=== PATIENT | female | born 1970 | race Caucasian/White ===

== ENCOUNTER 2019-12-24 07:44 | Outpatient (CLI) | payer OTHER, SELFPAY ==
--- NOTE | ~2019-12-24 | CT_ITS ---
EXAMINATION: CT chest high resolution wo nv DATE: 12/24/2019 09:37 INDICATION: Shortness of breath and cough TECHNIQUE: Computed tomography (CT) of the chest was performed without intravenous contrast. The dose -length product (DLP) was 451.13 mGy-cm. Automated exposure control and iterative reconstruction tech nique were employed. COMPARISON: None FINDINGS: There is mild emphysema. An 11 mm nodule is present in the left upper lobe on image 47. The re are subtle patchy groundglass opacities in the lungs with a lower lung zone predominance. No pleur al effusion or pneumothorax is identified. And aorticopulmonary window lymph node measures up to 12 m m in short axis. The heart size is normal. The gallbladder is surgically absent. There are fractures of the bilateral seventh ribs and left sixth rib with nonunion. A healing fracture of the left eighth rib is noted. IMPRESSION: 1. 11 mm nodule of the left upper lobe concerning for primary bronchogenic carcinoma. Recommend PET/C T, tissue sampling, or follow-up CT in three months. 2. Subtle patchy groundglass opacities which may be infectious or inflammatory. Reviewed, dictated and finalized at location A. IMPRESSION: 1. 11 mm nodule of the left upper lobe concerning for primary bronchogenic carc inoma. Recommend PET/CT, tissue sampling, or follow-up CT in three months. 2. Subtle patchy groundglass opacities which may be infectious or inflammatory.
--- NOTE | 2019-12-24 07:53 | ECHO_ITS ---
Patient Info Name: Jennifer Mott Age: 49 years : 1970 Gender: Female Ht: 62 in Wt: 249 lbs BSA: 2.29 m2 HR: 83 bpm BP: 105 / 84 mmHg Technical Quality: Fair Exam Date: 12/24/2019 8:02 AM Exam Location: [facility] Patient Status: Outpatient Admit Date: 12/24/2019 Staff Ordering Physician: Cinthya Olivares MD Ground Hand: Corinna Soto RDCS Attending Provider: Cinthya Olivares MD Referring Physician: Elise DICKINSON; Exam Type: CA echo doppler color flow Study Info Indications R06.02 - Shortness of breath Complete two-dimensional, color flow and Doppler transthoracic echocardiogram is performed. Summary 1. Left ventricular chamber dimension is normal. 2. Left ventricular systolic function is normal, estimated at 60-65%. 3. There is mildly increased left ventricular wall thickness. 4. The left ventricular diastolic function is grade I diastolic dysfunction. 5. E/e' 12 is mildly elevated. 6. There is trace mitral valve regurgitation. 7. No pulmonary hypertension, estimated pulmonary arterial systolic pressure is 33 mmHg. Left Ventricle E/e' 12 is mildly elevated. Left ventricular chamber dimension is normal. Left ventricular systolic function is normal, estimated at 60-65%. There is mildly increased left ventricular wall thickness. The left ventricular diastolic function is grade I diastolic dysfunction. Right Ventricle Right ventricular chamber dimension is normal. Right ventricular systolic function is normal. Left Atria Left atrial chamber dimension is normal. Right Atria Right atrial chamber dimension is normal. Aortic Valve Cannot determine number of aortic valve leaflets. The aortic valve is not well visualized. There is no aortic valve stenosis. There is no aortic valve regurgitation. Pulmonic Valve There is no pulmonic regurgitation. Mitral Valve There is no mitral valve stenosis. There is trace mitral valve regurgitation. Tricuspid Valve There is no tricuspid valve regurgitation. No pulmonary hypertension, estimated pulmonary arterial systolic pressure is 33 mmHg. Pericardium/Pleural There is no pericardial effusion. Inferior Vena Cava Normal inferior vena cava with >50% collapse upon inspiration consistent with normal right atrial pressure, 5 mmHg. Aorta The aortic root size at the sinus of Valsalva is normal. Left Ventricular Outflow Tract Name Value Normal LVOT 2D LVOT Diameter 1.9 cm LVOT Doppler LVOT Peak Gradient 5 mmHg LVOT Mean Gradient 3 mmHg LVOT VTI 22 cm LVOT VTI/AV VTI Ratio 0.9 LVOT Stroke Volume 62 ml LVOT CO 4.4 l/min LVOT CI 1.9 l/min/m2 Pulmonic Valve Name Value Normal RVOT Doppler
--- NOTE | 2019-12-31 12:14 | P.PCNPFT_ITS ---
PFT Interpretation PFT Interpretation: DOS: 12/24/2019 REEQUESTING: Dr Olivares REASON FOR TESTING: shortness of breath PULMONARY FUNCTION TESTS Results are reproducible and reliable Spirometry: Normal FEV1 96%, normal FVC 97%, normal FEV1%. No change with bronchodilator. BVP60-61% is borderline 67%, increases 12% with bro nchodilator. Lung volumes: Normal total lung capacity 96%. no air trapping. normal airway resistance. Diffusion: DLCO moderately decreased 51%. Flow volume loop: Normal. IMPRESSION: Normal spirometry lung volumes and flow volume loop. Isolated diffusion defect. This can be seen in early interstitial lung disease, chronic thromboembolic disease, collagen vascular disease with lung involvement and other conditions. Cinthya Olivares MD
--- NOTE | 2019-12-31 12:18 | WPDSIXMINUTE ---
Six Minute Walk Six Minute Walk: DOS: 12/24/2019 REASON FOR TESTING: Shortness of breath SIX MINUTE WALK This test was conducted per ATS guidelines. Baseline saturation was 97% and pulse was 80. The patient walked for 6 minutes without stopping with a final pulse of 107 and saturation 94%. Distance walked was 1000 ft/ 304.8 m. Patient had mild shortness of breath. IMPRESSION: This is a normal walk study without hypoxemia. No supplemental oxygen indicated with exertion. Distance walked is on the lower limit of normal for her age.
== END 2019-12-24 07:45 | disposition home or self-care (01) ==
PROVIDERS: PCP Family Medicine; Visit Provider Internal Medicine Critical Care Medicine
DX: R06.02 Shortness of breath (principal); R91.1 Solitary pulmonary nodule; R91.8 Other nonspecific abnormal finding of lung field
CPT/HCPCS: 71250; 93306; 94060; 94618; 94726; 94729

== ENCOUNTER 2019-12-31 15:20 | Emergency (ER) | payer OTHER, SELFPAY ==
[2019-12-31 15:45] VITALS: BP 108/70; PULSE 80; RESP 24; TEMP 36.3; O2SAT 96
--- NOTE | 2019-12-31 16:15 | ED.URI ---
HPI - URI/Sore Throat General Chief Complaint: Upper Respiratory Infection Stated Complaint: Cough Time Seen by Provider: 12/31/19 16:15 Source: patient and RN notes reviewed Mode of arrival: ambulatory Limitations: no limitations History of Present Illness HPI Narrative: 49 year old female who presents to [facility] care with increased cough for the past 4 days with dyspnea voiced. Patient denies any fevers, chills or sweats. Patient recently saw her seismic computer and had some testing done one week ago and has follow up with seismic computer in near future. Patient states long history of tobacco abuse ranging from 1/2 up to 2 ppd for over 30 years. Patient states that she has been using her inhalers and rescue inhaler and has been taking Mucinex with no improvement in her cough, states that cough is keeping her awake at night and she has coughed so hard her ribs hurt. Patient states that she has had fractured ribs in past from coughing. MD elicited complaint: cough and other (sob) Pertinent past history: pneumonia, COPD, asthma and other (tobacco abuse) Onset (ago): day(s) (4) Consistency: progressively worsening Severity: moderate Pain scale (0-10): 5 Description of mucous: clear Able to tolerate fluids by mouth: Yes Exacerbating factors: exertion and deep breaths Relieving factors: nothing Associated symptoms: cough and shortness of breath Treatments prior to arrival: other (inhalers and Mucinex) Related Data Home Medications Medication Instructions Recorded Confirmed atorvastatin 10 mg tablet 10 mg PO DAILY 09/30/19 12/31/19 buspirone 10 mg tablet 10 mg PO TID 09/30/19 12/31/19 metformin 500 mg tablet 500 mg PO DAILY 09/30/19 12/31/19 sertraline 50 mg tablet 50 mg PO DAILY 09/30/19 12/31/19 trazodone 100 mg tablet 100 mg PO DAILY tablet 09/30/19 12/31/19 aripiprazole 10 mg tablet 10 mg PO DAILY 11/23/19 12/31/19 cetirizine 10 mg capsule 10 mg PO DAILY 11/23/19 12/31/19 divalproex 250 mg PO DAILY 12/31/19 12/31/19 ergocalciferol (vitamin D2) 1,250 mcg PO WEEKLY 12/31/19 12/31/19 [Vitamin D2] Allergies Allergy/AdvReac Type Severity Reaction Status Date / Time No Known Allergies Allergy Verified 12/02/19 13:31 Review of Systems Review of Systems: Narrative: CONSTITUTIONAL: Denies fever, chills, or sweats. EYES: Denies visual changes, redness, or discharge. ENT: Denies any nasal drainage or congestion no sore throat or ear pain CARDIAC: Denies any chest pain, palpitations or edema,anterior rib pain with coughing RESPIRATORY: states increase cough and dyspnea with exertion GASTROINTESTINAL: Denies abdominal pain, nausea, vomiting, or diarrhea. GENITOURINARY: Denies dysuria or hematuria. SKIN: Denies rash or itching. MUSCULOSKELETAL: positive for chronic back pain, joint pain, or myalgia. NEUROLOGIC: Denies headache, numbness, or weakness. PSYCHIATRIC:positive for anxiety or depression. All systems reviewed & are unremarkable except as noted in HPI and below PMFSH Past Medical History Medical History (Updated 01/01/20 @ 22:52 by Sultana Garcia NP) Anxiety and depression Asthma Colitis COPD (chronic obstructive pulmonary disease) Fracture, ribs GI bleeding Pneumonia Rectal polyp Sleep apnea Surgical History Surgical History (Updated 01/01/20 @ 22:44 by Sultana Garcia NP) History of appendectomy History of cholecystectomy History of tubal ligation Social History Social History (Updated 01/01/20 @ 22:46 by Sultana Garcia NP) Smoking packs per day: 1 Smoking cigarettes per day: 20.0 Years smoked: 35 Smoking pack-years: 35.00 Smoking status: Current every day smoker Tobacco type: cigarettes Second hand tobacco smoke exposure: Yes Living arrangements: with family Gender identity (if verbalized by the patient): Female Comments At time of signature, agree with nursing past medical, surgical and social history. There is no relevant family history pertinent to the presenting com
== END 2019-12-31 16:20 | disposition home or self-care (01) ==
LOC: EXPBETH 15:29
PROVIDERS: Emergency Provider Registered Nurse; PCP Family Medicine
DX: J44.1 Chronic obstructive pulmonary disease with (acute) exacerbation (principal); J06.9 Acute upper respiratory infection, unspecified; F17.210 Nicotine dependence, cigarettes, uncomplicated; F41.9 Anxiety disorder, unspecified; F32.9 Major depressive disorder, single episode, unspecified; G47.30 Sleep apnea, unspecified
CPT/HCPCS: 99213; G0463

== ENCOUNTER 2020-01-18 09:42 | Outpatient (CLI) | payer OTHER, SELFPAY ==
--- NOTE | ~2020-01-18 | PE_ITS ---
EXAMINATION: PET skull to mid thigh DATE: 01/18/2020 12:28 INDICATION: Solitary pulmonary nodule TECHNIQUE: Blood glucose level was 130 mg/dL. 12.01 mCi of 18-fluorodeoxyglucose (18-FDG) was adminis tered i.v. Low dose computed tomography (CT) images were acquired from the base of the brain to the p roximal thighs for attenuation correction and anatomic localization. Positron emission tomography (PE T) images were acquired in the same distribution beginning 57 minutes after injection. COMPARISON: CT, 12/24/2019 FINDINGS: Head/neck: FDG uptake in the oropharynx and focal cords without suspicious CT correlate is likely phy siologic. There are no pathologically enlarged lymph nodes. Chest: There is a 1.2 x 1.0 cm nodule of the left upper lobe which demonstrates mild FDG uptake with an SUV max of 2.8. Patchy bilateral airspace opacities have developed throughout the lungs with moder ate FDG uptake. No pathologically enlarged thoracic lymph nodes are identified. The heart size is nor mal. There is no pleural effusion or pneumothorax. Abdomen/pelvis/proximal thighs: Physiologic FDG activity is present in the bowel and urinary tract. N o abnormal FDG uptake is identified. The gallbladder is surgically absent. The liver, spleen, pancrea s, and adrenal glands are normal. The left kidney is unremarkable. Nonobstructing stones of the right kidney measure up to 5 mm. No pathologically enlarged abdominal or pelvic lymph nodes are identified . There is no free intraperitoneal gas or evidence of bowel obstruction. Musculoskeletal: There are healing right-sided rib fractures and old bilateral rib fractures with non union. IMPRESSION: 1. Left upper lobe nodule with mild FDG uptake which remains concerning for primary bronchogenic carc inoma. 2. Worsening bilateral multifocal airspace opacities, consistent with multifocal pneumonia. Reviewed, dictated and finalized at location B. IMPRESSION: 1. Left upper lobe nodule with mild FDG uptake which remains concerning for deja alfredo bronchogenic carcinoma. 2. Worsening bilateral multifocal airspace opacities, consistent with multifoca l pneumonia.
[2020-01-18 10:10] LABS: Basophils Absolute Auto 0.1 K/mm3 (0.0-0.1); Basophils Percent Auto 0.8 % (0.2-1.2); Eosinophils Percent Auto 11.3 % (0-4.4); Hematocrit 40.8 % (37.0-47.0); Immature Granulocyte Absolute 0.15 K/mm3 (0.00-0.031); Immature Granulocyte Percent A 1.6 % (0-0.5); Lymphocytes Absolute Auto 3.03 K/mm3 (0.9-3.2); Lymphocytes Percent Auto 32.8 % (18.3-44.2); Mean Corpuscular HGB Conc 34.3 g/dl (32-36); Mean Corpuscular Volume 96.2 fl (80-100); Mean Platelet Volume 9.2 fl (7.4-10.4); Monocytes Absolute Auto 0.8 K/mm3 (0.1-0.6); Monocytes Percent Auto 8.7 % (2.6-8.5); Neutrophils Absolute Auto 4.1 K/mm3 (1.3-6.7); Neutrophils Percent Auto 44.8 % (45.5-73.1); Platelet Count Result 226 k/mm3 (150-375); Red Blood Count 4.24 M/mm3 (4.2-5.4); Red Cell Distribution Width 13.4 % (11.5-14.5); White Blood Count 9.2 K/mm3 (4.5-10.0)
[2020-01-18 10:19] LABS: Hemoglobin A1C 6.5 % (<5.7)
[2020-01-18 10:22] LABS: Alanine Aminotransferase 17 U/L (4-35); Albumin Level 3.9 g/dL (3.5-5.1); Alkaline Phosphatase 138 U/L (38-126); Aspartate Amino Transferase 20 U/L (14-36); Bilirubin,Total 0.2 mg/dL (0.2-1.3); Blood Urea Nitrogen 25 mg/dL (7-17); Carbon Dioxide 32 mmol/L (22-30); Chloride 97 mmol/L (98-107); Cholesterol 140 mg/dL (0-200); Estimated Glomerular Filt Rate 43; Glucose 129 mg/dL (65-105); HDL Direct 42 mg/dL; Potassium 4.3 mmol/L (3.4-5.0); Sodium 131 mmol/L (137-145); Triglycerides 134 mg/dL (<150)
[2020-01-18 10:32] LABS: LDL Cholesterol Direct 77 mg/dL
[2020-01-18 10:34] LABS: Glucose Point of Care 130 (65-105)
== END 2020-01-18 09:43 | disposition home or self-care (01) ==
PROVIDERS: Physician Assistant; PCP Family Medicine; Visit Provider Nurse Practitioner Family
DX: M54.5 Low back pain (principal); G89.29 Other chronic pain; F17.200 Nicotine dependence, unspecified, uncomplicated; G47.33 Obstructive sleep apnea (adult) (pediatric); E78.2 Mixed hyperlipidemia; E11.9 Type 2 diabetes mellitus without complications
CPT/HCPCS: 36415; 78815; 80053; 80061; 83036; 84443; 85025; A9552

== ENCOUNTER 2020-02-14 07:50 | Outpatient (CLI) | payer OTHER, SELFPAY ==
--- NOTE | ~2020-02-14 | XR_ITS ---
EXAMINATION: XR chest 2V DATE: 02/14/2020 08:18 INDICATION: Pneumonia, unspecified organism TECHNIQUE: PA and lateral views of the chest are obtained. COMPARISON: CTs dated 12/24/2019 and 01/18/2020 FINDINGS: The previously described left upper lobe nodule appears to persist but direct comparison to prior CT examinations is difficult. The bilateral airspace opacities described on the more recent CT appear to have improved. There is no pleural effusion or pneumothorax. The cardiomediastinal silhoue tte is normal. Old bilateral rib fractures are noted. IMPRESSION: 1. Improved bilateral airspace opacities, likely resolving pneumonia. 2. Apparent persistent left upper lobe nodule which remains concerning for primary bronchogenic carci noma. Reviewed, dictated and finalized at location A. IMPRESSION: 1. Improved bilateral airspace opacities, likely resolving pneumonia. 2. Apparent persistent left upper lobe nodule which remains concerning for prim dayana bronchogenic carcinoma.
[2020-02-14 08:23] LABS: Blood Urea Nitrogen 16 mg/dL (7-17); Calcium 9.5 mg/dL (8.4-10.2); Carbon Dioxide 27 mmol/L (22-30); Chloride 102 mmol/L (98-107); Estimated Glomerular Filt Rate 58; Glucose 117 mg/dL (65-105); Potassium 4.9 mmol/L (3.4-5.0); Sodium 136 mmol/L (137-145)
== END 2020-02-14 07:51 | disposition home or self-care (01) ==
PROVIDERS: PCP Family Medicine; Visit Provider Physician Assistant
DX: J18.9 Pneumonia, unspecified organism (principal); E87.1 Hypo-osmolality and hyponatremia; R91.8 Other nonspecific abnormal finding of lung field
CPT/HCPCS: 36415; 71046; 80048

== ENCOUNTER 2020-02-17 05:14 | Outpatient (CLI) | payer OTHER, SELFPAY ==
[2020-02-17 16:50] LABS: SARS-CoV-2 RNA PCR Negative
== END 2020-02-17 05:15 | disposition home or self-care (01) ==
LOC: ANHCOVIDDT 05:18
PROVIDERS: PCP Family Medicine; Visit Provider Internal Medicine Critical Care Medicine
DX: Z01.812 Encounter for preprocedural laboratory examination (principal); Z20.828 Contact with and (suspected) exposure to other viral communicable diseases
CPT/HCPCS: 87635; U0003

== ENCOUNTER 2020-02-18 01:14 | Day surgery (SDC) | payer OTHER, SELFPAY ==
[2020-02-16 14:00] VITALS: BMI 43.7
[2020-02-18] VITALS (8 sets, daily range): BP systolic 97–131; BP diastolic 41–75; PULSE 84–105; RESP 17–27; TEMP 36.6–37.1; O2SAT 91–99; BMI 41.5
--- NOTE | ~2020-02-18 | XR_ITS ---
EXAMINATION: XR chest 1V portable DATE: 02/18/2020 13:08 INDICATION: Left upper lobe pulmonary nodule status post bronchoscopy. TECHNIQUE: A single frontal view of the chest was obtained. COMPARISON: Chest 2 views 02/14/2020, chest CT 12/24/2019 FINDINGS: Sensitivity is decreased by obesity. The chest demonstrates clear lungs without pneumonia, pleural effusion, or pneumothorax. The heart size is normal. Surgical clips in the right upper quadra nt are likely from cholecystectomy. IMPRESSION: 1. No acute cardiopulmonary disease. Reviewed, dictated and finalized at location A.
--- NOTE | 2020-02-18 10:30 | WPDANESEPPF ---
Anes - Initial Pre Proc Eval Procedure: Operation Date: 02/18/20 12:00 Proposed Procedures p Flexible Bronchoscopy - Jaqueline Amaya MD Date/Time: 02/18/20 10:30 Surgeon: Jaqueline Amaya MD Pre Op Diagnosis: Lung Nodule Patient Data Age: 50 Gender: F Height: 5 ft 3 in Weight: 111.8 kg Allergies Allergy/AdvReac Type Severity Reaction Status Date / Time No Known Allergies Allergy Verified 12/02/19 13:31 Home Medications Medication Instructions Recorded Confirmed Type atorvastatin 10 mg tablet 10 mg PO DAILY 09/30/19 02/16/20 History buspirone 10 mg tablet 10 mg PO TID 09/30/19 02/16/20 History metformin 500 mg tablet 500 mg PO DAILY 09/30/19 02/16/20 History sertraline 50 mg tablet 100 mg PO DAILY 09/30/19 02/16/20 History trazodone 100 mg tablet 100 mg PO DAILY tablet 09/30/19 02/16/20 History fluticasone 232 mcg-salmeterol 14 1 puff INHALATION BID #1 each 10/11/19 02/16/20 Rx mcg/actuation breath activated powdr aripiprazole 10 mg tablet 10 mg PO DAILY 11/23/19 02/16/20 History cetirizine 10 mg capsule 10 mg PO DAILY 11/23/19 02/16/20 History naproxen 500 mg tablet 500 mg PO BID #60 tablet 12/02/19 02/16/20 Rx umeclidinium 62.5 mcg/actuation 1 inhalation INHALATION DAILY #30 12/02/19 02/16/20 Rx blister powder for inhalation each divalproex 250 mg PO DAILY 12/31/19 02/16/20 History ergocalciferol (vitamin D2) 1,250 mcg PO WEEKLY 12/31/19 02/16/20 History [Vitamin D2] albuterol sulfate 2.5 mg INHALATION TID #180 ml 01/07/20 02/16/20 Rx lisinopril 20 mg tablet 20 mg PO DAILY #30 tablet 01/20/20 02/16/20 Rx benzonatate 200 mg capsule 200 mg PO TID PRN #60 cap 01/21/20 02/16/20 Rx Patient hx anesthesia problems: none Family hx anesthesia problems: none PMFSH Past Medical History Medical History Anxiety and depression Asthma Colitis COPD (chronic obstructive pulmonary disease) Fracture, ribs GI bleeding Pneumonia Rectal polyp Sleep apnea Surgical History Surgical History History of appendectomy History of cholecystectomy History of tubal ligation Social History Social History Smoking packs per day: 1 Smoking cigarettes per day: 20.0 Years smoked: 35 Smoking pack-years: 35.00 Smoking status: Current every day smoker Tobacco type: cigarettes Second hand tobacco smoke exposure: Yes Gender identity (if verbalized by the patient): Female Anes - Eval Final PreProcedure Day of Procedure 02/18/20 10:30 Patient weight: morbidly obese Heart: regular rate and rhythm Lungs: decreased breath sounds Airway: Mallampati scale class II Neurological: other (alert) Last oral intake: >/= 8 hours ASA classification: IV Emergent: no Anesthetic plan: proceed Anesthesia type and monitoring: general LMA and standard monitoring Informed Consent: The patient's anesthetic plan and its attendant risks and benefits were discussed with the patient/family/POA. Questions were solicited and answers provided to the satisfaction of the patient/family/POA.
[2020-02-18] MEDS: LACTATED RINGERS 1,000 ML 150 ML IV CONT (10:53)
[2020-02-18 10:54] LABS: Glucose Point of Care 98 (65-105)
--- NOTE | 2020-02-18 13:05 | SUR.OPER ---
100 ml NS given intrabronchial 15ml out in BAL container
== END 2020-02-18 14:13 | disposition home or self-care (01) ==
PROVIDERS: PCP Family Medicine; Visit Provider Internal Medicine Critical Care Medicine
PROC: 0BJ08ZZ Inspection of Tracheobronchial Tree, Via Natural or Artificial Opening Endoscopic (ICD-10-PCS; CPT 31622; principal; 2020-02-18 12:00)
DX: R91.1 Solitary pulmonary nodule (principal); J44.9 Chronic obstructive pulmonary disease, unspecified; G47.33 Obstructive sleep apnea (adult) (pediatric); F41.8 Other specified anxiety disorders; Z79.84 Long term (current) use of oral hypoglycemic drugs; F17.210 Nicotine dependence, cigarettes, uncomplicated; E66.01 Morbid (severe) obesity due to excess calories; Z68.41 Body mass index [BMI] 40.0-44.9, adult
CPT/HCPCS: 31624; 71045; 88104; 88108; 88160; 88305; J7120

== ENCOUNTER 2020-03-02 13:11 | Inpatient (IN) | payer OTHER, SELFPAY ==
[2020-03-02] VITALS (7 sets, daily range): BP systolic 140–170; BP diastolic 67–101; PULSE 78–100; RESP 16–28; TEMP 36.4–36.9; O2SAT 93–95; BMI 39.7
--- NOTE | ~2020-03-02 | US_ITS ---
EXAMINATION:US venous doppler LE BI INDICATION:Urinary embolism TECHNIQUE: Multiple grayscale, color flow and Doppler images of the lower extremity deep venous syste ms were obtained and reviewed. COMPARISON:No prior studies for comparison. FINDINGS: The common femoral, superficial femoral and popliteal veins demonstrate normal respiratory variation, augmentation and compressibility. Color flow is also seen within the posterior tibial, pe roneal, greater saphenous and profunda veins. IMPRESSION: 1: No lower extremity deep venous thrombosis. Reviewed, dictated and finalized at location A.
--- NOTE | ~2020-03-02 | XR_ITS ---
EXAMINATION: XR chest 2V DATE: 03/02/2020 13:54 INDICATION: Weakness TECHNIQUE: 02/18/2020 COMPARISON: None available FINDINGS: The lungs are free of acute opacities. A previously described left upper lobe nodule is not well demonstrated on the current examination. Small pleural effusions are present. There is no pneum othorax. The cardiomediastinal silhouette is normal. There is mild thoracic spondylosis. Old bilatera l rib fractures are noted. IMPRESSION: 1. No acute cardiopulmonary abnormality. Reviewed, dictated and finalized at location A.
--- NOTE | ~2020-03-02 | CT_ITS ---
EXAMINATION: CTA chest PE protocol DATE: 03/02/2020 15:52 CDT INDICATION: Rule out pulmonary embolism. Dyspnea. TECHNIQUE: Computed tomographic angiography (CTA) of the chest was performed with 100 mL Omnipaque-35 0 intravenous contrast. The dose-length product was 622.78 mGy-cm. Maximum intensity projection 3D-re constructions of the aorta and other arteries were constructed by the technologist on a separate work station. Automated exposure control and iterative reconstruction technique were employed. COMPARISON: CT dated 12/24/2019 FINDINGS: Study is technically adequate. There are small filling defects in lower lobe subsegmental p ulmonary arteries, consistent with pulmonary embolism, small thrombus burden. No significant pleural or pericardial effusion. Cardiomegaly. No thoracic lymphadenopathy. No evidence for aortic aneurysm o r dissection. There is an accessory splenule in the upper abdomen. There are cholecystectomy clips. T here is an 11 mm left upper lobe nodule, image 43. Patchy groundglass opacities in the upper lobes, l eft greater than right. There are multiple chronic bilateral rib fractures. No pneumothorax. No endob ronchial lesions. IMPRESSION: 1. Small filling defects lower lobe subsegmental pulmonary arteries, consistent with pulmonary emboli sm, small thrombus burden. 2: Patchy groundglass opacities in the left upper lobe, suspicious for pneumonia. 3: 11 mm left upper lobe nodule. Cannot exclude bronchogenic carcinoma. Consider follow-up CT at 3 m [facility], pet/CT or tissue sampling. Reviewed, dictated and finalized at location A. IMPRESSION: 1. Small filling defects lower lobe subsegmental pulmonary arteries, consistent with pulmonary embolism, small thrombus burden. 2: Patchy groundglass opacities in the left upper lobe, suspicious for pneumoni a. 3: 11 mm left upper lobe nodule. Cannot exclude bronchogenic carcinoma. Consid er follow-up CT at 3 months, pet/CT or tissue sampling.
--- NOTE | 2020-03-02 13:30 | ED.GENADULT ---
HPI - General Adult General Chief complaint: Unspecified Stated complaint: MULTIPLE C/O Time Seen by Provider: 03/02/20 13:15 Source: patient Mode of arrival: ambulatory Limitations: no limitations History of Present Illness HPI narrative: Patient is a 50-year-old female with a history of newly diagnosed lung cancer, COPD, anxiety, who presents to the emergency department for evaluation of chest pain, nausea, vomiting, black and tarry stools. Patient reports a weeklong history of worsening nausea and vomiting, unable to tolerate much oral intake. She denies any shortness of breath, but states had due to her cancer diagnosis and unable to tolerate her oral anxiety medication, her anxiety has been out of control. She also reports she feels her hemorrhoids are acting up and has had some black, tarry stool over the past 48 hours. Patient is not on any anticoagulation, no history of GI bleed. No lightheadedness, patient states she feels mildly weak, no focal weakness or numbness. No recent syncope. No history of blood transfusions. Related Data Home Medications Medication Instructions Recorded Confirmed atorvastatin 10 mg tablet 10 mg PO DAILY 09/30/19 02/18/20 buspirone 10 mg tablet 10 mg PO TID 09/30/19 02/18/20 metformin 500 mg tablet 500 mg PO DAILY 09/30/19 02/18/20 trazodone 100 mg tablet 100 mg PO DAILY tablet 09/30/19 02/18/20 aripiprazole 10 mg tablet 10 mg PO DAILY 11/23/19 02/16/20 cetirizine 10 mg capsule 10 mg PO DAILY 11/23/19 02/18/20 divalproex 250 mg PO TID 12/31/19 02/18/20 ergocalciferol (vitamin D2) 1,250 mcg PO WEEKLY 12/31/19 02/18/20 [Vitamin D2] sertraline 100 mg PO DAILY 03/02/20 Allergies Allergy/AdvReac Type Severity Reaction Status Date / Time No Known Allergies Allergy Verified 02/18/20 10:54 Review of Systems Review of Systems: Narrative: CONSTITUTIONAL: Denies fever, chills, or sweats. EYES: Denies visual changes, redness, or discharge. ENT: Denies rhinorrhea, congestion, sore throat, or otalgia. CARDIOVASCULAR: Denies chest pain currently, palpitations, or edema. RESPIRATORY: Reports chronic cough, no current shortness of breath GASTROINTESTINAL: Reports mild abdominal discomfort, nausea and vomiting, denies diarrhea, reports dark stool GENITOURINARY: Denies dysuria or hematuria. SKIN: Denies rash or itching. MUSCULOSKELETAL: Denies back pain, joint pain, or myalgia. NEUROLOGIC: Denies headache, numbness, mild weakness PMFSH Past Medical History Medical History (Updated 03/02/20 @ 16:46 by Mandie Naranjo PA-C) Anxiety and depression Asthma Chronic obstructive pulmonary disease Colitis Esophageal reflux Fracture, ribs Chronic rib fractures on imaging in dated 03/02/2020. Lung nodule 11 millimeter left upper lobe nodule with mild FDG uptake on PET scan in December 2019. Bronchoscopy with bronchioalveolar lavage February 18, 2020 demonstrated no malignant cells. Obstructive sleep apnea Pneumonia Rectal polyp Tobacco abuse Type 2 diabetes mellitus without complication, without long-term current use of insulin Hemoglobin A1c was 6.5% in January 2020. Surgical History Surgical History (Updated 03/02/20 @ 16:46 by Mandie Naranjo PA-C) History of appendectomy History of cholecystectomy (~2010) History of tubal ligation (~1992) Family History Family History (Updated 03/02/20 @ 16:47 by Mandie Naranjo PA-C) Mother Hypertension Diabetes mellitus Father Heart disease Cerebrovascular accident Social History Social History (Updated 03/02/20 @ 16:47 by Mandie Naranjo PA-C) Social History: Patient lives in [place]. She has 2 children. She has smoked up to 2 packs of cigarettes per day for 35 years. Smoking packs per day: 1 Smoking cigarettes per day: 20.0 Years smoked: 35 Smoking pack-years: 35.00 Smoking status: Current every day smoker Tobacco type: cigarettes Second hand tobacco smoke exposure: Yes Gender identity (if verbalized by
--- NOTE | 2020-03-02 13:34 | ECG_ITS ---
Measurements Intervals [place] Rate: 94 P: 42 KS: 162 QRS: 50 QRSD: 85 T: 42 QT: 341 QTc: 427 Interpretive Statements SINUS RHYTHM LOW QRS VOLTAGE IN PRECORDIAL LEADS DELAYED PRECORDIAL R/S TRANSITION BORDERLINE ECG Electronically Signed On 03-02-2020 16:44:28 CDT by Baljit Vega D.O.
[2020-03-02] MEDS: ONDANSETRON INJ 4 MG/2 ML VIAL IV PUSH (13:47)
[2020-03-02] MEDS: LORAZEPAM INJ 2 MG/ML VIAL 0.5 MG IV PUSH (13:47)
[2020-03-02] MEDS: SODIUM CHLORIDE 0.9% IV 1,000 ML 999 ML IV CONT (13:47)
[2020-03-02 14:14] LABS: Basophils Percent Auto 0.3 % (0.2-1.2); Eosinophils Percent Auto 0.1 % (0-4.4); Hematocrit 41.3 % (37.0-47.0); Hemoglobin 14.4 g/dL (12.0-15.0); Immature Granulocyte Absolute 0.07 K/mm3 (0.00-0.031); Immature Granulocyte Percent A 0.6 % (0-0.5); Lymphocytes Absolute Auto 1.49 K/mm3 (0.9-3.2); Lymphocytes Percent Auto 13.2 % (18.3-44.2); Mean Corpuscular HGB Conc 34.9 g/dl (32-36); Mean Corpuscular Hemoglobin 33.1 pg (26-34); Mean Corpuscular Volume 94.9 fl (80-100); Mean Platelet Volume 9.1 fl (7.4-10.4); Monocytes Absolute Auto 0.6 K/mm3 (0.1-0.6); Monocytes Percent Auto 5.4 % (2.6-8.5); Neutrophils Absolute Auto 9.1 K/mm3 (1.3-6.7); Neutrophils Percent Auto 80.4 % (45.5-73.1); Platelet Count Result 243 k/mm3 (150-375); Red Blood Count 4.35 M/mm3 (4.2-5.4); Red Cell Distribution Width 13.7 % (11.5-14.5); White Blood Count 11.3 K/mm3 (4.5-10.0)
[2020-03-02 14:25] LABS: INR 0.9; Prothrombin Time 12.2 Seconds (11.1-14.7)
[2020-03-02 14:26] LABS: Partial Thromboplastin Time 25.6 SECONDS (22.3-36.8)
[2020-03-02 14:27] LABS: Alanine Aminotransferase 19 U/L (4-35); Albumin Level 4.4 g/dL (3.5-5.1); Alkaline Phosphatase 107 U/L (38-126); Aspartate Amino Transferase 26 U/L (14-36); Bilirubin,Total 0.5 mg/dL (0.2-1.3); Blood Urea Nitrogen 9 mg/dL (7-17); Calcium 9.3 mg/dL (8.4-10.2); Carbon Dioxide 27 mmol/L (22-30); Chloride 102 mmol/L (98-107); Estimated CRCL calculation 84 ml/min; Estimated Glomerular Filt Rate > 60; Glucose 117 mg/dL (65-105); Sodium 135 mmol/L (137-145)
[2020-03-02 14:28] LABS: D Dimer 0.29 ug/mL (<0.48)
[2020-03-02 14:40] LABS: Troponin I 0.527 ng/mL (0.000-0.034)
[2020-03-02 15:42] LABS: NT Pro B Type Natriuretic Pept 2860 PG/ML (5-100)
[2020-03-02] MEDS: AZITHROMYCIN 250 MG TABLET 500 MG PO (16:49)
[2020-03-02] MEDS: HEPARIN SOD/D5W 100 UNITS/ML 25,000 UNITS/250 ML BAG 13 UNITS IV CONT (17:23)
[2020-03-02] MEDS: HEPARIN SODIUM 5,000 UNITS/ML VIAL 6000 UNITS IV PUSH (17:25)
--- NOTE | 2020-03-02 17:46 | ADMGEN ---
This patient, Jennifer Mott, was admitted to Intensive Care Unit-2. Patient/family oriented to hospital policies and general routines including ID bracelet, bed and alarms, visiting hours, pain management, procedures, bathroom and other care routines, personal items, smoking policy, room service/diet, and visiting hours. Valuables list has been completed. Information on how to activate the Rapid Response Team has been discussed. Patient/Family are encouraged to report perceived risks to care and to ask questions if they do not understand what they are told or what they should do.
--- NOTE | 2020-03-02 22:00 | PM.IMHP ---
H&P: HPI History of Present Illness Chief complaint: Anxiety, nausea, and vomiting. Narrative: Jennifer Mott is a 50-year-old female smoker with COPD, obstructive sleep apnea, hypertension, anxiety,and type 2 diabetes mellitus who presented to the emergency department earlier this afternoon for evaluation of nausea, vomiting, and with reports of anxiety. She has been increasingly more anxious over the past couple of weeks, waiting for results of a left upper lobe nodule biopsy that is suspicious for primary bronchogenic carcinoma. Last night, she tells me she was anxious and just could not get comfortable in bed. Sometime during the night she developed diffuse sweats, increasing anxiety, and feelings of racing heart. She has also had nausea and intermittent vomiting for the past 1 weeks time. Additionally she reports dark colored, loose stools over the past couple of days, maybe 2 to 3 episodes per day. She denies having chest pain to me, but did report some chest discomfort to the emergency department physician. This prompted troponin levels to be drawn, which came back elevated and a subsequent chest CTA showed small subsegmental pulmonary emboli in the lower lobes. Also noted was patchy ground-glass opacities in the left upper lobe suspicious for pneumonia. With further questioning, she mentions being treated for pneumonia in December and at that time was swabbed for COVID-19, however it was negative. She completed a course of doxycycline with improvement in her symptoms, however she continues to have a cough which is really nonproductive. She has not had a documented fever. She denies sinus congestion, rhinorrhea, otalgia, and odynophagia. She has not had pleuritic pain or significant shortness of breath. She denies lower extremity edema, calf pain, recent travel, and history of venous thromboembolism. She has not had vomiting since admission. She denies hematemesis. Review of Systems Review of Systems: Narrative: Twelve systems were reviewed with pertinent positives and negatives as per HPI. She has lost about 12 pounds since November, unintentionally, but she wonders if it is due to her being sick for a couple of weeks with pneumonia and December. Her appetite over the past couple of weeks has been poor, but she thinks that may be due to anxiety although she has had occasional nausea and even vomiting. No dysphagia or concerns for aspiration. No history of C diff. She denies sick contacts and recent travel. Except as documented, all other systems were reviewed and are negative. [facility] Past Medical History Medical History (Updated 03/03/20 @ 00:14 by Mandie Naranjo PA-C) Anxiety and depression Asthma Bipolar disorder Chronic obstructive pulmonary disease Colitis Esophageal reflux Fracture, ribs Chronic rib fractures on imaging in dated 03/02/2020. Lung nodule 11 millimeter left upper lobe nodule with mild FDG uptake on PET scan in December 2019. Bronchoscopy with bronchioalveolar lavage February 18, 2020 demonstrated no malignant cells. Obstructive sleep apnea Pneumonia Rectal polyp Tobacco abuse Type 2 diabetes mellitus without complication, without long-term current use of insulin Hemoglobin A1c was 6.5% in January 2020. Surgical History Surgical History (Updated 03/02/20 @ 16:46 by Mandie Naranjo PA-C) History of appendectomy History of cholecystectomy (~2010) History of tubal ligation (~1992) Family History Family History Mother Hypertension Diabetes mellitus Father Heart disease Cerebrovascular accident Social History Social History (Updated 03/03/20 @ 00:08 by Mandie Naranjo PA-C) Social History: The patient lives in [place]. She has 2 grown children. She has smoked up to 2 packs of cigarettes per day for 35 years, now smokes about a pack a day. She denies alcohol abuse. Occasional marijuana use. Her sister, Ilene Gil, is her mike
[2020-03-02 22:56] LABS: Prothrombin Time 12.5 Seconds (11.1-14.7)
[2020-03-02 23:15] LABS: Partial Thromboplastin Time 92.1 SECONDS (22.3-36.8)
[2020-03-02 23:21] LABS: Troponin I 0.431 ng/mL (0.000-0.034)
[2020-03-03] VITALS (10 sets, daily range): BP systolic 126–172; BP diastolic 72–97; PULSE 77–108; RESP 12–28; TEMP 36.2–36.8; O2SAT 93–99; BMI 39.4
[2020-03-03 04:14] LABS: Add Urine Microscopic? YES; Appearance Urine Clear (Clear); Bilirubin Urine Negative (Negative); Blood Urine 2+ (Negative); Color Urine Yellow (Yellow); Glucose Urine UA Negative (Negative); Ketones Urine Trace mg/dL (Negative); Leukocyte Esterase Ur Negative LEU/UL (Negative); Mucus Urine Rare /lpf; Nitrate Urine Negative (Negative); Protein Urine Negative (Negative); Squamous Epithelial Cell Urine Rare /hpf (Few); Urobilinogen Urine Negative mg/dL (<2.0); WBC Urine 0-3 /hpf
[2020-03-03 04:19] LABS: Specific Grav Ur 1.032 (1.001-1.035)
[2020-03-03 05:22] LABS: Basophils Percent Auto 0.4 % (0.2-1.2); Eosinophils Absolute Auto 0.1 K/mm3 (0-0.3); Eosinophils Percent Auto 1.2 % (0-4.4); Hematocrit 38.3 % (37.0-47.0); Hemoglobin 13.6 g/dL (12.0-15.0); Immature Granulocyte Absolute 0.04 K/mm3 (0.00-0.031); Immature Granulocyte Percent A 0.5 % (0-0.5); Lymphocytes Absolute Auto 2.96 K/mm3 (0.9-3.2); Lymphocytes Percent Auto 35.7 % (18.3-44.2); Mean Corpuscular HGB Conc 35.5 g/dl (32-36); Mean Corpuscular Hemoglobin 33.7 pg (26-34); Mean Platelet Volume 8.9 fl (7.4-10.4); Monocytes Absolute Auto 0.7 K/mm3 (0.1-0.6); Monocytes Percent Auto 8.3 % (2.6-8.5); Neutrophils Absolute Auto 4.5 K/mm3 (1.3-6.7); Neutrophils Percent Auto 53.9 % (45.5-73.1); Platelet Count Result 216 k/mm3 (150-375); Red Blood Count 4.03 M/mm3 (4.2-5.4); Red Cell Distribution Width 13.6 % (11.5-14.5); White Blood Count 8.3 K/mm3 (4.5-10.0)
[2020-03-03 05:33] LABS: Alanine Aminotransferase 18 U/L (4-35); Alkaline Phosphatase 94 U/L (38-126); Aspartate Amino Transferase 26 U/L (14-36); Bilirubin,Total 0.4 mg/dL (0.2-1.3); Blood Urea Nitrogen 9 mg/dL (7-17); Calcium 8.8 mg/dL (8.4-10.2); Carbon Dioxide 26 mmol/L (22-30); Chloride 101 mmol/L (98-107); Estimated CRCL calculation 82 ml/min; Estimated Glomerular Filt Rate > 60; Glucose 106 mg/dL (65-105); Potassium 3.6 mmol/L (3.4-5.0); Sodium 132 mmol/L (137-145)
[2020-03-03 05:39] LABS: Partial Thromboplastin Time 71.1 SECONDS (22.3-36.8)
[2020-03-03 05:47] LABS: Hemoglobin A1C 5.9 % (<5.7)
[2020-03-03] MEDS: SERTRALINE HCL 50 MG TABLET 100 MG PO (05:49)
[2020-03-03] MEDS: busPIRone HCL 10 MG TABLET PO ×3 (05:49→17:42)
--- NOTE | 2020-03-03 06:00 | ECHO_ITS ---
Patient Info Name: Jennifer Mott Age: 50 years : 1970 Gender: Female Ht: 63 in Wt: 224 lbs BSA: 2.18 m2 HR: 84 bpm BP: 162 / 95 mmHg Technical Quality: Good Exam Date: 03/03/2020 2:46 PM Exam Location: [facility] Patient Status: Inpatient Admit Date: 03/03/2020 Staff Ordering Physician: Sultana Barba MD Supervisor Floor Assembly: Jairo Blank, LEEANN, RT Attending Provider: Shailesh Salas MD Exam Type: CA echo doppler color flow Study Info Indications I24.8 - Other forms of acute ischemic heart disease Complete two-dimensional, color flow and Doppler transthoracic echocardiogram is performed. Summary 1. Left ventricular chamber dimension is normal. 2. Left ventricular systolic function is normal, estimated at 60-65%. 3. There is mildly increased left ventricular wall thickness. 4. The left ventricular diastolic function is grade I diastolic dysfunction. 5. E/e' 8 is minimally elevated. 6. There is mild mitral valve regurgitation. 7. There is trace pulmonic regurgitation. Left Ventricle E/e' 8 is minimally elevated. Left ventricular chamber dimension is normal. Left ventricular systolic function is normal, estimated at 60-65%. There is mildly increased left ventricular wall thickness. The left ventricular diastolic function is grade I diastolic dysfunction. Right Ventricle Right ventricular chamber dimension is normal. Right ventricular systolic function is normal. Left Atria Left atrial chamber dimension is normal. Right Atria Right atrial chamber dimension is normal. Aortic Valve The aortic valve is trileaflet. There is no aortic valve stenosis. There is no aortic valve regurgitation. Pulmonic Valve There is trace pulmonic regurgitation. Mitral Valve There is no mitral valve stenosis. There is mild mitral valve regurgitation. Tricuspid Valve There is no tricuspid valve regurgitation. Pericardium/Pleural There is no pericardial effusion. Inferior Vena Cava Normal inferior vena cava with >50% collapse upon inspiration consistent with normal right atrial pressure, 5 mmHg. Aorta The aortic root size at the sinus of Valsalva is normal. Left Ventricular Outflow Tract Name Value Normal LVOT 2D LVOT Diameter 2.1 cm LVOT Doppler LVOT Peak Gradient 3 mmHg LVOT Mean Gradient 2 mmHg LVOT VTI 19 cm LVOT VTI/AV VTI Ratio 0.8 LVOT Stroke Volume 70 ml LVOT CO 5.5 l/min LVOT CI 2.5 l/min/m2 Mitral Valve Name Value Normal MV Doppler MV Peak Gradient 1 mmHg MV Mean Gradient 1 mmHg MV [employer] [place] 340 cm/s2 MV
[2020-03-03] MEDS: NICOTINE (*PBKC) 21 MG PATCH 1 PATCH TRANSDERM (06:28)
[2020-03-03 08:46] LABS: Glucose Point of Care 132 (65-105)
[2020-03-03] MEDS: lisinopriL 20 MG TABLET PO (09:17)
[2020-03-03] MEDS: DIVALPROEX SODIUM 250 MG TAB.ER.24H PO ×3 (09:17→17:41)
[2020-03-03] MEDS: ARIPIPRAZOLE 10 MG TABLET PO (09:18)
[2020-03-03] MEDS: LORATADINE 10 MG TABLET PO (09:18)
[2020-03-03] MEDS: HEPARIN SOD/D5W 100 UNITS/ML 25,000 UNITS/250 ML BAG 13 UNITS IV CONT (12:00)
[2020-03-03 12:12] LABS: Glucose Point of Care 118 (65-105)
[2020-03-03] MEDS: ONDANSETRON INJ 4 MG/2 ML VIAL IV PUSH (12:21)
[2020-03-03 13:10] LABS: SARS-CoV-2 RNA PCR Negative
--- NOTE | 2020-03-03 15:04 | PM.IMPN ---
Progress Note: A&P Assessment and Plan (1) Pulmonary embolism: Qualifiers: Acute cor pulmonale presence: without acute cor pulmonale Chronicity: acute Pulmonary embolism type: other Qualified Code(s): I26.99 - Other pulmonary embolism without acute cor pulmonale Code(s): I26.99 - Other pulmonary embolism without acute cor pulmonale Status: Acute Assessment and Plan: CTA showing bilateral LL small clot burden. Doppler of the LE pending. Currently on a heparin drip. Will change to Eliquis. Case management to determine if patient can afford this. (2) Lung nodule: Code(s): R91.1 - Solitary pulmonary nodule Status: Acute Assessment and Plan: Patient with known MARY lung nodule s/p bronch with washings on 02/18/20. Increased uptake by PET 01/17 also concerning for lung CA. Pulmonaology may stop by to deliver results to patient later today. (3) Elevated troponin I level: Code(s): R79.89 - Other specified abnormal findings of blood chemistry Status: Acute Assessment and Plan: Troponins elevated to 0.53 but flat and are not indicative of acute coronary syndrome. BNP 2860. EKG showing delayed transition. Clot burden is small and felt not related to the elevated troponin or BNP. Echo completed in December but repeat ordered. Follow up on results. (4) Nausea & vomiting: Qualifiers: Vomiting Intractability: non-intractable Vomiting type: unspecified Qualified Code(s): R11.2 - Nausea with vomiting, unspecified Code(s): R11.2 - Nausea with vomiting, unspecified Status: Acute Assessment and Plan: Still persistent today. This is been intermittent over the last several weeks and may be due to her underlying anxiety. Contineu supportive care for now with antiemetics as needed. (5) Anxiety: Code(s): F41.9 - Anxiety disorder, unspecified Status: Acute Assessment and Plan: Patient with severe, chronic anxiety, worse over the past couple of weeks awaiting left upper lobe pathology results. Continue buspirone. (6) Type 2 diabetes mellitus without complication, without long-term current use of insulin: Code(s): E11.9 - Type 2 diabetes mellitus without complications Status: Acute Assessment and Plan: A1c 5.9. Glucose reviewed on 03/03/2020. Glucose well controlled. Continue Accu-Cheks and covering with sliding scale insulin. Hypoglycemic protocol available as needed. Metformin on hold. (7) Pneumonia: Qualifiers: Laterality: unspecified laterality Lung location: unspecified part of lung Pneumonia type: due to unspecified organism Qualified Code(s): J18.9 - Pneumonia, unspecified organism Code(s): J18.9 - Pneumonia, unspecified organism Status: Acute Assessment and Plan: CT scan showing left upper lobe airspace disease. WBC slightly elevated but normal now. Remains on room air. SARS-CoV-2 negative. Will continue azithromycin and ceftriaxone. She remains on room air. (8) Bipolar disorder: Code(s): F31.9 - Bipolar disorder, unspecified Status: Acute Assessment and Plan: Mood stable. Continue home medication including sertraline, divalproex, and aripiprazole. (9) Essential (primary) hypertension: Code(s): I10 - Essential (primary) hypertension Status: Acute Assessment and Plan: Blood reviewed 03/03/20. BP elevated at times. Currently on lisinopril. May have missed dose yesterday. Will continue to follow for now. Consider advancing medications tomorrow if blood presure remains persistently high. Subjective Date/time seen: 03/03/20 15:04 Interval history: 50yo female here for PE possibly left upper lobe pneumonia. Patient feels anxious today. She denies feels short of breath or chest pain. Also complains palpitations associated with anxiety. Also complains of nausea and dry heaves. She
[2020-03-03 19:15] LABS: Glucose Point of Care 109 (65-105)
--- NOTE | 2020-03-03 19:23 | PC.NURSE ---
This patient, Jennifer Mott, [facility] on 03/03/20 at 1910 with Heparin gtt. Personal belongings sent with patient. Belongings list checked and signed with receiving RN. Report given to SADE Sheets. Appropriate documentation sent with patient.
[2020-03-03] MEDS: APIXABAN 5 MG TABLET 10 MG PO (21:03)
[2020-03-03] MEDS: TRAZODONE HCL 50 MG TABLET 100 MG PO (21:04)
[2020-03-03] MEDS: ATORVASTATIN 10 MG TABLET PO (21:04)
[2020-03-03 21:30] LABS: Glucose Point of Care 104 (65-105)
--- NOTE | 2020-03-04 00:35 | PC.NURSE ---
Received Patient from ICU at 1915. Sudeep STUART on days took report. Transported by W/C. Heparin connected to Patients IV. IV intact. Call light is placed near pt. Orientated to room.
[2020-03-04 02:00] VITALS: BP 173/86; PULSE 87; RESP 16; TEMP 36; O2SAT 93
[2020-03-04 06:00] VITALS: BP 165/89; PULSE 90; RESP 16; TEMP 36.1; O2SAT 95
[2020-03-04 06:33] LABS: Glucose Point of Care 135 (65-105)
[2020-03-04] MEDS: ONDANSETRON INJ 4 MG/2 ML VIAL IV PUSH ×2 (08:10→12:39)
[2020-03-04] MEDS: NICOTINE (*PBKC) 21 MG PATCH 1 PATCH TRANSDERM (08:14)
[2020-03-04] MEDS: ARIPIPRAZOLE 10 MG TABLET PO (08:16)
[2020-03-04] MEDS: busPIRone HCL 10 MG TABLET PO ×3 (08:16→16:52)
[2020-03-04] MEDS: lisinopriL 20 MG TABLET PO (08:16)
[2020-03-04] MEDS: LORATADINE 10 MG TABLET PO (08:16)
[2020-03-04] MEDS: DIVALPROEX SODIUM 250 MG TAB.ER.24H PO ×3 (08:16→16:51)
[2020-03-04] MEDS: APIXABAN 5 MG TABLET 10 MG PO ×2 (08:16→21:26)
[2020-03-04] MEDS: SERTRALINE HCL 50 MG TABLET 100 MG PO (08:16)
--- NOTE | 2020-03-04 09:06 | PM.IMPN ---
Progress Note: A&P Assessment and Plan (1) Pulmonary embolism: Qualifiers: Acute cor pulmonale presence: without acute cor pulmonale Chronicity: acute Pulmonary embolism type: other Qualified Code(s): I26.99 - Other pulmonary embolism without acute cor pulmonale Code(s): I26.99 - Other pulmonary embolism without acute cor pulmonale Status: Acute Assessment and Plan: CTA showing bilateral LL small clot burden. Doppler of the LE negative. Started on a heparin drip but changed to Eliquis. Case management determining if this medication is affordable to the patient. (2) Pneumonia: Qualifiers: Laterality: unspecified laterality Lung location: unspecified part of lung Pneumonia type: due to unspecified organism Qualified Code(s): J18.9 - Pneumonia, unspecified organism Code(s): J18.9 - Pneumonia, unspecified organism Status: Acute Assessment and Plan: CT scan showing left upper lobe airspace disease. WBC slightly elevated but normalized. Remains on room air. SARS-CoV-2 negative. Will continue azithromycin and ceftriaxone. She remains on room air. (3) Lung nodule: Code(s): R91.1 - Solitary pulmonary nodule Status: Acute Assessment and Plan: Patient with known MARY lung nodule s/p bronch with washings 02/18/20 with results showing no malignant cells. Increased uptake by PET 01/17 also concerning for lung CA. Informed patient of the results. Explained that the current testing did not reveal malignant cells but this does not rule out lung cancer and that she will need to continue to have follow up appointments with her computer systems analyst with follow up scans. She voices understanding of these instructions. (4) Elevated troponin I level: Code(s): R79.89 - Other specified abnormal findings of blood chemistry Status: Acute Assessment and Plan: Troponins elevated to 0.53 but flat and are not indicative of acute coronary syndrome. BNP 2860. EKG showing delayed transition. Clot burden is small and felt not related to the elevated troponin or BNP. Echo showing normal systolic function with EF 60-65% grade I diastolic dysfunction. (5) Nausea & vomiting: Qualifiers: Vomiting Intractability: non-intractable Vomiting type: unspecified Qualified Code(s): R11.2 - Nausea with vomiting, unspecified Code(s): R11.2 - Nausea with vomiting, unspecified Status: Acute Assessment and Plan: Still persistent nausea today but no vomiting. This is been intermittent over the last several weeks and may be due to her underlying anxiety. Continue supportive care for now with antiemetics as needed. (6) Anxiety: Code(s): F41.9 - Anxiety disorder, unspecified Status: Acute Assessment and Plan: Patient with severe, chronic anxiety made worse over the past couple of weeks awaiting left upper lobe biopsy results. Bronch results noted and explained to patient. Continue buspirone. (7) Type 2 diabetes mellitus without complication, without long-term current use of insulin: Code(s): E11.9 - Type 2 diabetes mellitus without complications Status: Acute Assessment and Plan: A1c 5.9. Glucose reviewed on 03/04/2020. Glucose well controlled. Continue Accu-Cheks and covering with sliding scale insulin. Hypoglycemic protocol available as needed. Resume Metformin at discharge. (8) Bipolar disorder: Code(s): F31.9 - Bipolar disorder, unspecified Status: Acute Assessment and Plan: Mood stable. Continue home medication including sertraline, divalproex, and aripiprazole. (9) Essential (primary) hypertension: Code(s): I10 - Essential (primary) hypertension Status: Acute Assessment and Plan: Blood reviewed 03/04/20. BP elevated overnight but better at 10am after Lisinopril. May need evening dose to control symptoms overnight. Continue on lis
[2020-03-04 10:00] VITALS: BP 130/89; PULSE 94; RESP 18; TEMP 36.6; O2SAT 95
[2020-03-04 11:31] LABS: Glucose Point of Care 102 (65-105)
[2020-03-04 14:00] VITALS: BP 145/80; PULSE 88; RESP 16; TEMP 36.7; O2SAT 93
[2020-03-04 16:39] LABS: Glucose Point of Care 102 (65-105)
[2020-03-04 18:00] VITALS: BP 121/90; PULSE 99; RESP 18; TEMP 36.5; O2SAT 96
[2020-03-04] MEDS: ATORVASTATIN 10 MG TABLET PO (21:26)
[2020-03-04] MEDS: TRAZODONE HCL 50 MG TABLET 100 MG PO (21:27)
[2020-03-04 21:53] LABS: Glucose Point of Care 114 (65-105)
[2020-03-04 22:00] VITALS: BP 113/91; PULSE 107; RESP 16; TEMP 36.7; O2SAT 94
[2020-03-05 04:00] VITALS: BP 120/81; PULSE 86; RESP 16; TEMP 36.6; O2SAT 95
[2020-03-05 07:45] LABS: Glucose Point of Care 123 (65-105)
[2020-03-05] MEDS: ARIPIPRAZOLE 10 MG TABLET PO (08:54)
[2020-03-05] MEDS: busPIRone HCL 10 MG TABLET PO ×3 (08:54→16:09)
[2020-03-05] MEDS: APIXABAN 5 MG TABLET 10 MG PO ×2 (08:54→16:10)
[2020-03-05] MEDS: lisinopriL 20 MG TABLET PO (08:55)
[2020-03-05] MEDS: LORATADINE 10 MG TABLET PO (08:55)
[2020-03-05] MEDS: DIVALPROEX SODIUM 250 MG TAB.ER.24H PO ×3 (08:55→16:09)
[2020-03-05] MEDS: NICOTINE (*PBKC) 21 MG PATCH 1 PATCH TRANSDERM (08:55)
[2020-03-05] MEDS: SERTRALINE HCL 50 MG TABLET 100 MG PO (08:55)
[2020-03-05 10:00] VITALS: BP 124/75; PULSE 85; RESP 16; TEMP 36.1; O2SAT 93
[2020-03-05 11:58] LABS: Glucose Point of Care 112 (65-105)
[2020-03-05 14:00] VITALS: BP 131/72; PULSE 98; RESP 18; TEMP 36.3; O2SAT 97
--- NOTE | 2020-03-05 15:22 | PM.DS ---
DS: Admitting Diagnosis Admitting Diagnosis Admitting Diagnosis: Other pulmonary embolism without acute cor pulmonale DS: Discharge Diagnosis Discharge Diagnosis (1) Pulmonary embolism: Qualifiers: Acute cor pulmonale presence: without acute cor pulmonale Chronicity: acute Pulmonary embolism type: other Qualified Code(s): I26.99 - Other pulmonary embolism without acute cor pulmonale Code(s): I26.99 - Other pulmonary embolism without acute cor pulmonale Status: Acute Assessment and Plan: CTA showing bilateral LL small clot burden. Doppler of the LE negative. Started on a heparin drip but changed to Eliquis. Case management unable to determine if she can afford Eliquis but able to get her 1 month free. She will follow up with her doctor to determine this. If not, she can be transitioned to another agent. (2) Pneumonia: Qualifiers: Laterality: unspecified laterality Lung location: unspecified part of lung Pneumonia type: due to unspecified organism Qualified Code(s): J18.9 - Pneumonia, unspecified organism Code(s): J18.9 - Pneumonia, unspecified organism Status: Acute Assessment and Plan: CT scan showing left upper lobe airspace disease. WBC slightly elevated but normalized. Remains on room air. SARS-CoV-2 negative. Treated with azithromycin and ceftriaxone. She remains on room air. Continue abx to complete a course. (3) Lung nodule: Code(s): R91.1 - Solitary pulmonary nodule Status: Acute Assessment and Plan: Patient with known MARY lung nodule s/p bronch with washings 02/18/20 with results showing no malignant cells. Increased uptake by PET 01/17 also concerning for lung CA. Informed patient of the results. Explained that the current testing did not reveal malignant cells but this does not rule out lung cancer and that she will need to continue to have follow up appointments with her maintenance shop welder with follow up scans. She voices understanding of these instructions. (4) Elevated troponin I level: Code(s): R79.89 - Other specified abnormal findings of blood chemistry Status: Acute Assessment and Plan: Troponins elevated to 0.53 but flat and are not indicative of acute coronary syndrome. BNP 2860. EKG showing delayed transition. Clot burden is small and felt not related to the elevated troponin or BNP. Echo showing normal systolic function with EF 60-65% grade I diastolic dysfunction. (5) Nausea & vomiting: Qualifiers: Vomiting Intractability: non-intractable Vomiting type: unspecified Qualified Code(s): R11.2 - Nausea with vomiting, unspecified Code(s): R11.2 - Nausea with vomiting, unspecified Status: Acute Assessment and Plan: Nausea better. This is been intermittent over the last several weeks and may be due to her underlying anxiety. (6) Anxiety: Code(s): F41.9 - Anxiety disorder, unspecified Status: Acute Assessment and Plan: Patient with severe, chronic anxiety made worse over the past couple of weeks awaiting left upper lobe biopsy results. Bronch results noted and explained to patient. Continue buspirone. (7) Type 2 diabetes mellitus without complication, without long-term current use of insulin: Code(s): E11.9 - Type 2 diabetes mellitus without complications Status: Acute Assessment and Plan: A1c 5.9. Glucose monitored with Accu-Cheks and covered with sliding scale. Glucose remained well controlled. (8) Bipolar disorder: Code(s): F31.9 - Bipolar disorder, unspecified Status: Acute Assessment and Plan: Mood stable. Continue home medication including sertraline, divalproex, and aripiprazole. (9) Essential (primary) hypertension: Code(s): I10 - Essential (primary) hypertension Status: Acute Assessment and Plan: Blood monitored. BP elevated at times but bet
[2020-03-05 19:05] LABS: Pneumococcal Antigen Urine Not Detected (Not Detected)
[2020-03-08 20:11] LABS: Legionella pneumophila Ag Ur Not Detected (Not Detected)
--- NOTE | 2020-03-10 13:21 | PC.NURSE ---
Legionella Ag and Pneumococcal Ag are both negative. Dr. Salas is aware.
== END 2020-03-05 16:21 | disposition home or self-care (01) | DRG 134 ==
LOC: ANHED 15:34 → ANHIMU 16:12 → ANHICU 16:47 → ANH2MED 03-03 19:15
PROVIDERS: Physician Assistant; Admitting Provider Internal Medicine; Emergency Provider Emergency Medicine; PCP Family Medicine; Visit Provider Internal Medicine
DX: I26.99 Other pulmonary embolism without acute cor pulmonale (principal); J18.9 Pneumonia, unspecified organism; J44.0 Chronic obstructive pulmonary disease with (acute) lower respiratory infection; R91.1 Solitary pulmonary nodule; R79.89 Other specified abnormal findings of blood chemistry; F17.210 Nicotine dependence, cigarettes, uncomplicated; E11.9 Type 2 diabetes mellitus without complications; R11.2 Nausea with vomiting, unspecified; F41.9 Anxiety disorder, unspecified; F31.9 Bipolar disorder, unspecified; I10 Essential (primary) hypertension; G47.33 Obstructive sleep apnea (adult) (pediatric); Z78.0 Asymptomatic menopausal state; Z79.84 Long term (current) use of oral hypoglycemic drugs; Z79.899 Other long term (current) drug therapy
CPT/HCPCS: 36415; 71046; 71275; 80053; 81001; 83036; 83880; 84443; 84484; 85025; 85380; 85610; 85730; 87449; 87635; 87899; 93005; 93306; 93970; 96361; 96365; 96375; 99285; A9270; C9803; J0456; J0696; J1644; J2060; J2405; J7030; Q9967; U0003

== ENCOUNTER 2020-08-07 12:39 | Outpatient (CLI) | payer OTHER, SELFPAY ==
--- NOTE | ~2020-08-07 | CT_ITS ---
EXAMINATION:CT chest wo con DATE: 08/07/2020 13:05 INDICATION: Disorder of lung. TECHNIQUE: Computed tomography (CT) of the chest was performed without intravenous contrast. Automate d exposure control and iterative reconstruction technique were employed. The dose-length product (DLP ) was 312.70 mGy-cm. COMPARISON: Chest CT 03/02/2020, 12/24/2019 FINDINGS: There is mild emphysema. There is mild atelectasis bilaterally. There is a 10 mm cavitary n odule in left upper lobe. No pleural effusion. The heart size is normal. No pericardial effusion. The re are changes of cholecystectomy. There are old bilateral rib fractures. IMPRESSION: 1. 10 mm cavitary nodule in left lung upper lobe, decreased from 12 mm on 12/24/2019, most likely infe ction. Noncontrast low-dose chest CT is recommended in one year. 2. Mild emphysema. Reviewed, dictated and finalized at location A. [facility] IMPRESSION: 1. 10 mm cavitary nodule in left lung upper lobe, decreased from 12 mm on 2019, most likely infection. Noncontrast low-dose chest CT is recommended in on e year. 2. Mild emphysema.
== END 2020-08-07 12:40 | disposition home or self-care (01) ==
PROVIDERS: PCP Family Medicine; Visit Provider Nurse Practitioner Family
DX: J43.9 Emphysema, unspecified (principal); R91.1 Solitary pulmonary nodule
CPT/HCPCS: 71250

== ENCOUNTER 2020-11-27 11:58 | Outpatient (CLI) | payer OTHER, SELFPAY ==
--- NOTE | ~2020-11-27 | XR_ITS ---
XR_[id number] DATE: 11/27/2020 12:28 INDICATION: Neck pain, with radiculopathy TECHNIQUE: AP, open-mouth, lateral views COMPARISON: None FINDINGS: Normal alignment of the cervical spine. No fracture or dislocation or locked facet or preve rtebral soft tissue swelling. IMPRESSION: No significant abnormality Reviewed, dictated and finalized at Location A. Reviewed, dictated and finalized at location A. [facility] IMPRESSION: No significant abnormality
== END 2020-11-27 11:59 | disposition home or self-care (01) ==
PROVIDERS: PCP Family Medicine; Visit Provider Physician Assistant
DX: M54.12 Radiculopathy, cervical region (principal)
CPT/HCPCS: 72040

== ENCOUNTER 2020-12-08 14:56 | Emergency (ER) | payer OTHER, SELFPAY ==
--- NOTE | ~2020-12-08 | XR_ITS ---
EXAMINATION: XR chest 2V EXAM DATE: 12/08/2020 15:41 INDICATION: Cough and wheezing. TECHNIQUE: Frontal and lateral projections of the chest obtained and reviewed. Comparison is made to prior examination from 03/02/2020. Correlation was made with CT chest 08/07/2020. FINDINGS: There is left perihilar nodular opacity measuring approximately 8 mm. This is likely the sa me nodule which was imaged on CT in August, please correlate with that report. The lungs are otherw ise clear. There are no pleural effusions. The cardiomediastinal silhouette is within normal limits . There is no pneumothorax suspected. The bones and soft tissues are unremarkable. IMPRESSION: 1. Left perihilar nodule likely same finding on CT from August, believed to be postinfectious. 2. No acute cardiopulmonary findings. Reviewed, dictated and finalized at location A. [employer]RARIAN IMPRESSION: 1. Left perihilar nodule likely same finding on CT from August, believed to b e postinfectious. 2. No acute cardiopulmonary findings.
[2020-12-08 15:16] VITALS: BP 139/71; PULSE 100; RESP 24; TEMP 36.6; O2SAT 96
--- NOTE | 2020-12-08 16:10 | ED.URI ---
HPI - URI/Sore Throat General Chief Complaint: Upper Respiratory Infection Stated Complaint: Cough/SOB Time Seen by Provider: 12/08/20 15:45 Source: patient Mode of arrival: ambulatory Limitations: no limitations History of Present Illness HPI Narrative: Jennifer Mott is a 50 yo female with PMH of HTN, diabetes, COPD, [facility] with complaints of shortness of breath and cough for the past 10 days. Patient has severe COPD and continues to smoke cigarettes at rate of 1/2 pack cigarettes a day; has nebulizer 3 times a day and rescue inhaler 2 times a day. Related Data Home Medications Medication Instructions Recorded Confirmed buspirone 10 mg tablet 10 mg PO TID 09/30/19 12/08/20 aripiprazole 10 mg tablet 10 mg PO DAILY 11/23/19 12/08/20 divalproex 250 mg PO BID 12/31/19 12/08/20 sertraline 100 mg tablet 100 mg PO DAILY tablet 11/27/20 12/08/20 albuterol sulfate 2.5 mg INHALATION TID PRN 12/08/20 12/08/20 bupropion HCl (smoking deter) 150 mg PO DAILY 12/08/20 12/08/20 sertraline 50 mg PO DAILY 12/08/20 12/08/20 umeclidinium [Incruse Ellipta] 62.5 mcg INHALATION DAILY 12/08/20 12/08/20 Allergies Allergy/AdvReac Type Severity Reaction Status Date / Time No Known Allergies Allergy Verified 12/08/20 15:02 Review of Systems Review of Systems: Narrative: CONSTITUTIONAL: Denies fever, chills, sweats. EYES: Denies visual changes, redness, discharge. ENT: Denies rhinorrhea, no congestion, sore throat, otalgia. CARDIOVASCULAR: Denies chest pain, palpitations, edema. RESPIRATORY: Denies dyspnea, mild wheezing, dry cough GASTROINTESTINAL: Denies abdominal pain, nausea, vomiting, diarrhea. GENITOURINARY: Denies dysuria, hematuria, abnormal discharge SKIN: Denies rash or itching. NEUROLOGIC: Denies numbness, or focal weakness. PSYCHIATRIC: Denies anxiety or depression. [facility] Past Medical History Medical History (Updated 12/08/20 @ 16:26 by Paty Tejada CNP) Anxiety and depression Asthma Bipolar disorder Chronic obstructive pulmonary disease Colitis Esophageal reflux Fracture, ribs Chronic rib fractures on imaging in dated 03/02/2020. Lung nodule 11 millimeter left upper lobe nodule with mild FDG uptake on PET scan in December 2019. Bronchoscopy with bronchioalveolar lavage February 18, 2020 demonstrated no malignant cells. Obstructive sleep apnea Pneumonia Rectal polyp Tobacco abuse Type 2 diabetes mellitus without complication, without long-term current use of insulin Hemoglobin A1c was 6.5% in January 2020. Surgical History Surgical History History of appendectomy History of cholecystectomy (~2010) History of tubal ligation (~1992) Family History Family History Mother Hypertension Diabetes mellitus Father Heart disease Cerebrovascular accident Social History Social History Social History: The patient lives in [place]. She has 2 grown children. She has smoked up to 2 packs of cigarettes per day for 35 years, now smokes about a pack a day. She denies alcohol abuse. Occasional marijuana use. Her sister, Ilene Gil, is her surrogate decision maker and she wishes to be a full code. Smoking packs per day: 1 Smoking cigarettes per day: 20.0 Years smoked: 35 Smoking pack-years: 35.00 Smoking status: Current every day smoker Tobacco type: cigarettes Second hand tobacco smoke exposure: Yes Alcohol intake: never Substance use: current Substance use type: marijuana Gender identity (if verbalized by the patient): Female Spiritual care concerns: No Comments At time of signature, I agree with nursing past medical, surgical, social and family history. There is no relevant family history pertinent to the presenting complaint. Exam Narrative: Exam Narrative: GENERAL: This is a well-nourished
[2020-12-09 08:27] LABS: SARS-CoV-2 RNA PCR Negative
== END 2020-12-08 16:30 | disposition home or self-care (01) ==
PROVIDERS: Emergency Provider Nurse Practitioner; PCP Family Medicine
DX: R06.02 Shortness of breath (principal); Z20.822 Contact with and (suspected) exposure to COVID-19; F17.210 Nicotine dependence, cigarettes, uncomplicated; F41.9 Anxiety disorder, unspecified; F32.9 Major depressive disorder, single episode, unspecified; J44.9 Chronic obstructive pulmonary disease, unspecified; K21.9 Gastro-esophageal reflux disease without esophagitis; G47.33 Obstructive sleep apnea (adult) (pediatric); E11.9 Type 2 diabetes mellitus without complications; Z79.4 Long term (current) use of insulin
CPT/HCPCS: 71046; 87426; 99213; C9803; G0463; U0003; U0005

== ENCOUNTER 2021-03-02 10:07 | Outpatient (CLI) | payer OTHER, SELFPAY ==
[2021-03-02 10:42] LABS: Basophils Percent Auto 0.6 % (0.2-1.2); Eosinophils Absolute Auto 0.2 K/mm3 (0-0.3); Eosinophils Percent Auto 2.9 % (0-4.4); Hematocrit 38.7 % (37.0-47.0); Hemoglobin 13.8 g/dL (12.0-15.0); Immature Granulocyte Absolute 0.04 K/mm3 (0.00-0.031); Immature Granulocyte Percent A 0.6 % (0-0.5); Lymphocytes Absolute Auto 2.52 K/mm3 (0.9-3.2); Mean Corpuscular HGB Conc 35.7 g/dl (32-36); Mean Corpuscular Volume 92.6 fl (80-100); Mean Platelet Volume 9.4 fl (7.4-10.4); Monocytes Absolute Auto 0.5 K/mm3 (0.1-0.6); Monocytes Percent Auto 7.8 % (2.6-8.5); Neutrophils Absolute Auto 3.5 K/mm3 (1.3-6.7); Neutrophils Percent Auto 51.1 % (45.5-73.1); Platelet Count Result 220 k/mm3 (150-375); Red Blood Count 4.18 M/mm3 (4.2-5.4); Red Cell Distribution Width 12.4 % (11.5-14.5); White Blood Count 6.8 K/mm3 (4.5-10.0)
[2021-03-02 10:52] LABS: Alanine Aminotransferase 18 U/L (4-35); Albumin Level 4.5 g/dL (3.5-5.1); Alkaline Phosphatase 99 U/L (38-126); Anion Gap 10 mmol/L (8-16); Aspartate Amino Transferase 26 U/L (14-36); Bilirubin,Total 0.4 mg/dL (0.2-1.3); Blood Urea Nitrogen 11 mg/dL (7-17); Calcium 9.5 mg/dL (8.4-10.2); Carbon Dioxide 26 mmol/L (22-30); Chloride 105 mmol/L (98-107); Cholesterol 165 mg/dL (0-200); Estimated Glomerular Filt Rate 58; Glucose 97 mg/dL (65-105); HDL Direct 55 mg/dL; Potassium 4.4 mmol/L (3.4-5.0); Sodium 141 mmol/L (137-145); Triglycerides 173 mg/dL (<150)
[2021-03-02 11:03] LABS: LDL Cholesterol Direct 78 mg/dL
[2021-03-02 11:22] LABS: Hemoglobin A1C 5.6 % (<5.7)
[2021-03-02 11:30] LABS: MALB Creatinine Ratio 20.7 mg/g (0-30); Microalbumin Urine Random 11.4 mg/L (0-16.7)
[2021-03-02 11:58] LABS: Vitamin D 25 Hydroxy 36.3 ng/mL
== END 2021-03-02 10:08 | disposition home or self-care (01) ==
LOC: ANHLAB 10:09
PROVIDERS: PCP Family Medicine; Visit Provider Physician Assistant
DX: E11.9 Type 2 diabetes mellitus without complications (principal); E78.2 Mixed hyperlipidemia; Z51.81 Encounter for therapeutic drug level monitoring; Z79.899 Other long term (current) drug therapy
CPT/HCPCS: 36415; 80053; 80061; 82043; 82306; 83036; 84443; 85025

== ENCOUNTER → 2021-03-03 03:00 | Outpatient (CLI) | payer OTHER, SELFPAY ==
[2021-03-03 19:46] LABS: SARS-CoV-2 RNA PCR Negative
== END ==
PROVIDERS: PCP Family Medicine; Visit Provider Internal Medicine Gastroenterology
DX: Z01.812 Encounter for preprocedural laboratory examination (principal); Z20.822 Contact with and (suspected) exposure to COVID-19
CPT/HCPCS: C9803; U0003; U0005

== ENCOUNTER 2021-03-07 01:47 | Day surgery (SDC) | payer OTHER, SELFPAY ==
[2021-03-01 12:11] VITALS: BMI 45.1
[2021-03-07 11:55] VITALS: BP 129/61; PULSE 85; RESP 16; TEMP 36; O2SAT 100
[2021-03-07] MEDS: LACTATED RINGERS 1,000 ML 150 ML IV CONT (12:06)
--- NOTE | 2021-03-07 12:08 | WPDANESEPPF ---
Anes - Initial Pre Proc Eval Procedure: Operation Date: 03/07/21 12:45 Proposed Procedures p Colonoscopy - Sina Guan MD s [facility] Hemorrhoid Treatment - Sina Guan MD Date/Time: 03/07/21 12:08 Surgeon: Sina Guan MD Pre Op Diagnosis: melena, diarrhea, hemorrhoids Patient Data Age: 51 Gender: F Height: 5 ft 1 in Weight: 106.1 kg Last Vital Signs Temp 96.8 F L 03/07/21 11:55 Pulse 85 03/07/21 11:55 Resp 16 03/07/21 11:55 BP 129/61 03/07/21 11:55 Pulse Ox 100 03/07/21 11:55 Allergies Allergy/AdvReac Type Severity Reaction Status Date / Time No Known Allergies Allergy Verified 03/07/21 11:51 Home Medications Medication Instructions Recorded Confirmed Type aripiprazole 10 mg tablet 10 mg PO DAILY 11/23/19 03/02/21 History divalproex 250 mg PO TID 12/31/19 03/02/21 History lisinopril 20 mg tablet 20 mg PO DAILY #90 tablet 05/23/20 03/02/21 Rx atorvastatin 10 mg tablet 10 mg PO HS #90 tablet 07/18/20 03/02/21 Rx cetirizine 10 mg tablet 10 mg PO DAILY #90 tablet 07/18/20 03/02/21 Rx ergocalciferol (vitamin D2) 1,250 1,250 mcg PO WEEKLY #90 cap 07/18/20 03/02/21 Rx mcg (50,000 unit) capsule sertraline 100 mg tablet 100 mg PO DAILY tablet 11/27/20 03/02/21 History albuterol sulfate 2.5 mg INHALATION TID PRN 12/08/20 03/02/21 History sertraline 50 mg PO DAILY 12/08/20 03/02/21 History metformin 500 mg tablet 1,000 mg PO BID #360 tablet 12/25/20 03/02/21 Rx budesonide-formoterol HFA 160 See Rx Instructions .ROUTE 01/02/21 03/02/21 Rx mcg-4.5 mcg/actuation aerosol .COMPLEX #10.2 g inhaler cholestyramine (with sugar) 4 gram 4 g PO DAILY #60 ea 01/18/21 03/02/21 Rx powder for susp in a packet umeclidinium 62.5 mcg/actuation 62.5 mcg INHALATION DAILY #30 ea 02/27/21 03/02/21 Rx blister powder for inhalation apixaban [Eliquis] 5 mg PO BID 03/01/21 03/02/21 History buspirone 10 mg PO TID 03/01/21 03/02/21 History Patient hx anesthesia problems: none Family hx anesthesia problems: none [facility] Past Medical History Medical History Anxiety and depression Asthma Bipolar disorder Blood in stool Chronic obstructive pulmonary disease Colitis Colon cancer screening Diarrhea Esophageal reflux Fracture, ribs Chronic rib fractures on imaging in dated 03/02/2020. Lung nodule 11 millimeter left upper lobe nodule with mild FDG uptake on PET scan in December 2019. Bronchoscopy with bronchioalveolar lavage February 18, 2020 demonstrated no malignant cells. Obstructive sleep apnea Pneumonia Rectal polyp Tobacco abuse Type 2 diabetes mellitus without complication, without long-term current use of insulin Hemoglobin A1c was 6.5% in January 2020. Surgical History Surgical History History of appendectomy History of cholecystectomy (~2010) History of tubal ligation (~1992) Family History Family History Mother Hypertension Diabetes mellitus Father Heart disease Cerebrovascular accident Social History Social History Social History: The patient lives in [place]. She has 2 grown children. She has smoked up to 2 packs of cigarettes per day for 35 years, now smokes about a pack a day. She denies alcohol abuse. Occasional marijuana use. Her sister, Ilene Gil, is her surrogate decision maker and she wishes to be a full code. Smoking packs per day: 1 Smoking cigarettes per day: 20.0 Years smoked: 44 Smoking pack-years: 44.00 Tobacco type: cigarettes Second hand tobacco smoke exposure: Yes Alcohol intake: current Drinks per week: 3 Substance use: current Substance use type: marijuana Other substance usage details: smokes marijuana daily Last use: 03/01/2021 Living arrangements: with family
[2021-03-07 12:10] LABS: Glucose Point of Care 99 mg/dl (65-105)
--- NOTE | 2021-03-07 12:33 | PM.HPGS ---
History of Present Illness History of Present Illness Consent: Risks, benefits, and alternatives have been discussed and questions answered. Patient agrees to proceed with procedure. Chief complaint: melena, diarrhea, hemorrhoids Narrative: Jennifer Mott is a 51 year old female with loose stools and symptomatic hemorrhoids despite medical treatment, questran did not help (recently prescribed- she has cholecystectomy). Last colonoscopy 2012 Review of Systems Constitutional: Constitutional: Denies headache(s) and Denies weakness Eyes: Eyes: Denies blurry vision ENT: Reports Normal hearing present, Denies headache(s) and Denies neck pain Cardiovascular: Cardiovascular: Denies chest pain and Denies dyspnea Respiratory: Respiratory: Denies dyspnea Gastrointestinal: Gastrointestinal: Reports no additional gastrointestinal complaints Genitourinary: Genitourinary: Denies dysuria Musculoskeletal: Musculoskeletal: Denies neck pain Integumentary/Breasts: Skin/Breast: Denies dry skin Neurologic: Reports Normal hearing present, Denies headache(s) and Denies weakness Psychiatric: Psychiatric: Denies anxiety Endocrine: Endocrine: Denies change in body appearance Hematologic/Lymphatic: Hematologic/Lymphatic: Denies easy bleeding Allergic/Immunologic: Allergic/Immunologic: Denies urticaria PMF Past Medical History Medical History (Updated 03/07/21 @ 12:34 by Sina Guan MD) Anxiety and depression Asthma Bipolar disorder Blood in stool Chronic obstructive pulmonary disease Colitis Colon cancer screening Diarrhea Esophageal reflux Fracture, ribs Chronic rib fractures on imaging in dated 03/02/2020. Hemorrhoid Lung nodule 11 millimeter left upper lobe nodule with mild FDG uptake on PET scan in December 2019. Bronchoscopy with bronchioalveolar lavage February 18, 2020 demonstrated no malignant cells. Obstructive sleep apnea Pneumonia Rectal polyp Tobacco abuse Type 2 diabetes mellitus without complication, without long-term current use of insulin Hemoglobin A1c was 6.5% in January 2020. Surgical History Surgical History History of appendectomy History of cholecystectomy (~2010) History of tubal ligation (~1992) Family History Family History Mother Hypertension Diabetes mellitus Father Heart disease Cerebrovascular accident Social History Social History Social History: The patient lives in [place]. She has 2 grown children. She has smoked up to 2 packs of cigarettes per day for 35 years, now smokes about a pack a day. She denies alcohol abuse. Occasional marijuana use. Her sister, Ilene Gil, is her surrogate decision maker and she wishes to be a full code. Smoking packs per day: 1 Smoking cigarettes per day: 20.0 Years smoked: 44 Smoking pack-years: 44.00 Tobacco type: cigarettes Second hand tobacco smoke exposure: Yes Alcohol intake: current Drinks per week: 3 Substance use: current Substance use type: marijuana Other substance usage details: smokes marijuana daily Last use: 03/01/2021 Living arrangements: with family Gender identity (if verbalized by the patient): Female Spiritual care concerns: No Meds Home Medications and Allergies Home Medications Medication Instructions Recorded Confirmed Type aripiprazole 10 mg tablet 10 mg PO DAILY 11/23/19 03/02/21 History divalproex 250 mg PO TID 12/31/19 03/02/21 History lisinopril 20 mg tablet 20 mg PO DAILY #90 tablet 05/23/20 03/02/21 Rx atorvastatin 10 mg tablet 10 mg PO HS #90 tablet 07/18/20 03/02/21 Rx cetirizine 10 mg tablet 10 mg PO DAILY #90 tablet 07/18/20 03/02/21 Rx ergocalciferol (vitamin D2) 1,250 1,250 mcg PO WEEKLY #90 cap 07/18/20 03/02/21 Rx mcg (50,000 unit) capsule sertraline 100 mg tablet 100 mg PO
[2021-03-07 13:00] VITALS: BP 115/66; PULSE 82; RESP 20; O2SAT 98
--- NOTE | 2021-03-07 13:02 | PM.PROC ---
Procedure Note - Detailed Date of procedure: 03/07/21 Pre-op diagnosis: melena, diarrhea, hemorrhoids Procedure performed: stage II internal hemorrhoids Description of procedure: after finished colonoscopy while she was still sedated, performed rectal exam and found skin tags then introduced anoscope and found stage II internal hemorrhoids at 3 o'clock, then used IRC probe 1.5 seconds each time x5. Patient tolerated procedure Surgeon: Sina Guan MD Complications: No immediate complications Findings: - avoid straining - fiber and stool softener as needed
[2021-03-07 13:10] VITALS: BP 129/77; PULSE 79; RESP 23; O2SAT 98
[2021-03-07 13:20] VITALS: BP 135/73; PULSE 79; RESP 24; O2SAT 98
--- NOTE | 2021-03-07 13:27 | SUR.PHASEII ---
pt ready to be discharged but sister is still 15 minutes or so away.
== END 2021-03-07 14:00 | disposition home or self-care (01) ==
PROVIDERS: PCP Family Medicine; Visit Provider Internal Medicine Gastroenterology
PROC: 0DJD8ZZ Inspection of Lower Intestinal Tract, Via Natural or Artificial Opening Endoscopic (ICD-10-PCS; CPT 45378; principal; 2021-03-07 12:45)
PROC: (CPT 46930; 2021-03-07 12:45)
DX: K64.1 Second degree hemorrhoids (principal); K92.1 Melena; R19.7 Diarrhea, unspecified; J44.9 Chronic obstructive pulmonary disease, unspecified; G47.33 Obstructive sleep apnea (adult) (pediatric); F41.9 Anxiety disorder, unspecified; F31.9 Bipolar disorder, unspecified; K21.9 Gastro-esophageal reflux disease without esophagitis; E11.9 Type 2 diabetes mellitus without complications; Z79.51 Long term (current) use of inhaled steroids; Z79.84 Long term (current) use of oral hypoglycemic drugs; Z79.01 Long term (current) use of anticoagulants; F17.210 Nicotine dependence, cigarettes, uncomplicated; F12.90 Cannabis use, unspecified, uncomplicated; E66.01 Morbid (severe) obesity due to excess calories; Z68.41 Body mass index [BMI] 40.0-44.9, adult
CPT/HCPCS: 46930; 82948; 88305; J2704; J7120

== ENCOUNTER 2021-03-15 16:36 | Emergency (ER) | payer OTHER, SELFPAY ==
[2021-03-15 17:15] VITALS: BP 142/69; PULSE 90; RESP 16; TEMP 36.7; O2SAT 100
[2021-03-15 18:19] LABS: Basophils Percent Auto 0.2 % (0.2-1.2); Hemoglobin 14.4 g/dL (12.0-15.0); Immature Granulocyte Absolute 0.06 K/mm3 (0.00-0.031); Immature Granulocyte Percent A 0.6 % (0-0.5); Lymphocytes Absolute Auto 1.18 K/mm3 (0.9-3.2); Lymphocytes Percent Auto 12.6 % (18.3-44.2); Mean Corpuscular Hemoglobin 33.7 pg (26-34); Mean Corpuscular Volume 93.7 fl (80-100); Mean Platelet Volume 9.4 fl (7.4-10.4); Monocytes Absolute Auto 0.4 K/mm3 (0.1-0.6); Monocytes Percent Auto 3.8 % (2.6-8.5); Neutrophils Absolute Auto 7.7 K/mm3 (1.3-6.7); Neutrophils Percent Auto 82.8 % (45.5-73.1); Platelet Count Result 226 k/mm3 (150-375); Red Blood Count 4.27 M/mm3 (4.2-5.4); Red Cell Distribution Width 12.9 % (11.5-14.5); White Blood Count 9.4 K/mm3 (4.5-10.0)
[2021-03-15 18:25] LABS: Alanine Aminotransferase 22 U/L (4-35); Albumin Level 4.7 g/dL (3.5-5.1); Alkaline Phosphatase 75 U/L (38-126); Anion Gap 11 mmol/L (8-16); Aspartate Amino Transferase 36 U/L (14-36); Bilirubin,Total 0.4 mg/dL (0.2-1.3); Blood Urea Nitrogen 15 mg/dL (7-17); Calcium 9.8 mg/dL (8.4-10.2); Carbon Dioxide 24 mmol/L (22-30); Chloride 106 mmol/L (98-107); Estimated CRCL calculation 72 ml/min; Estimated Glomerular Filt Rate > 60; Glucose 134 mg/dL (65-105); Lipase 95 U/L (23-300); Potassium 3.9 mmol/L (3.4-5.0); Sodium 141 mmol/L (137-145)
[2021-03-15 18:27] LABS: Add Urine Microscopic? YES; Appearance Urine Cloudy (Clear); Bacteria Urine Trace /hpf; Bilirubin Urine Negative (Negative); Blood Urine 1+ (Negative); Color Urine Yellow (Yellow); Glucose Urine UA Negative (Negative); Ketones Urine 2+ mg/dL (Negative); Leukocyte Esterase Ur Negative LEU/UL (Negative); Mucus Urine Few /lpf; Nitrate Urine Negative (Negative); Protein Urine 2+ mg/dL (Negative); Squamous Epithelial Cell Urine Many /hpf (Few); Urobilinogen Urine Negative mg/dL (<2.0)
[2021-03-15 18:28] VITALS: PULSE 84; RESP 16; O2SAT 99
[2021-03-15 18:32] VITALS: BP 178/96; BP 180/112; PULSE 83; PULSE 84
[2021-03-15 18:35] VITALS: BP 173/103
[2021-03-15] MEDS: ONDANSETRON INJ 4 MG/2 ML VIAL IV PUSH (19:21)
[2021-03-15] MEDS: SODIUM CHLORIDE 0.9% IV 500 ML 999 ML IV CONT (19:21)
--- NOTE | 2021-03-15 19:37 | ED.NAVMDI ---
HPI - Nausea/Vomiting/Diarrhea General Chief complaint: Nausea/Vomiting/Diarrhea Stated complaint: DEHYDRATED AND THROWING UP Time Seen by Provider: 03/15/21 18:28 Source: patient Mode of arrival: ambulatory Limitations: no limitations History of Present Illness HPI Narrative: 51-year-old with history of hypertension, diabetes here with complaints of nausea vomiting and diarrhea started this morning. She states she had low-grade fever. No history of any blood in the stool. She states that she is feeling dehydrated. MD elicited complaint: nausea, vomiting and diarrhea Onset (ago): day(s) (1) Associated nausea: Yes Location of pain: diffuse Quality: cramping Exacerbating factors: none Relieving factors: none Related Data Home Medications Medication Instructions Recorded Confirmed aripiprazole 10 mg tablet 10 mg PO DAILY 11/23/19 03/12/21 divalproex 250 mg PO TID 12/31/19 03/12/21 sertraline 100 mg tablet 100 mg PO DAILY tablet 11/27/20 03/12/21 albuterol sulfate 2.5 mg INHALATION TID PRN 12/08/20 03/12/21 sertraline 50 mg PO DAILY 12/08/20 03/12/21 apixaban [Eliquis] 5 mg PO BID 03/01/21 03/12/21 buspirone 10 mg PO TID 03/01/21 03/12/21 Allergies Allergy/AdvReac Type Severity Reaction Status Date / Time No Known Allergies Allergy Verified 03/12/21 09:48 Review of Systems Review of Systems: All systems reviewed & are unremarkable except as noted in HPI and below Constitutional: Constitutional: Reports no additional constitutional complaints Eyes: Eyes: Reports no additional eye complaints ENT: Reports system reviewed and no additional complaints, except as documented Cardiovascular: Cardiovascular: Reports no additional cardiovascular complaints Respiratory: Respiratory: Reports no additional respiratory complaints Gastrointestinal: Gastrointestinal: Reports as per HPI Musculoskeletal: Musculoskeletal: Reports no additional musculoskeletal complaints PMFSH Past Medical History Medical History Anxiety and depression Asthma Bipolar disorder Blood in stool Chronic obstructive pulmonary disease Colitis Colon cancer screening Diarrhea Esophageal reflux Fracture, ribs Chronic rib fractures on imaging in dated 03/02/2020. Hemorrhoid Lung nodule 11 millimeter left upper lobe nodule with mild FDG uptake on PET scan in December 2019. Bronchoscopy with bronchioalveolar lavage February 18, 2020 demonstrated no malignant cells. Obstructive sleep apnea Pneumonia Rectal polyp Tobacco abuse Type 2 diabetes mellitus without complication, without long-term current use of insulin Hemoglobin A1c was 6.5% in January 2020. Surgical History Surgical History History of appendectomy History of cholecystectomy (~2010) History of tubal ligation (~1992) Family History Family History Mother Hypertension Diabetes mellitus Father Heart disease Cerebrovascular accident Social History Social History Social History: The patient lives in [place]. She has 2 grown children. She has smoked up to 2 packs of cigarettes per day for 35 years, now smokes about a pack a day. She denies alcohol abuse. Occasional marijuana use. Her sister, Ilene Gil, is her surrogate decision maker and she wishes to be a full code. Smoking packs per day: 1 Smoking cigarettes per day: 20.0 Years smoked: 44 Smoking pack-years: 44.00 Smoking status: Current every day smoker Tobacco type: cigarettes Second hand tobacco smoke exposure: Yes Alcohol intake: current Drinks per week: 3 Substance use: current Substance use type: marijuana Other substance usage details: smokes marijuana daily Last use: 03/01/2021 Gender identity (if verbalized by the patient): Female Spiritual care concerns: No Exam
[2021-03-15 20:08] VITALS: BP 165/84; PULSE 86; RESP 16; O2SAT 99
== END 2021-03-15 20:00 | disposition home or self-care (01) ==
PROVIDERS: Emergency Provider Family Medicine; PCP Family Medicine
DX: K52.9 Noninfective gastroenteritis and colitis, unspecified (principal); I10 Essential (primary) hypertension; E11.9 Type 2 diabetes mellitus without complications; Z79.01 Long term (current) use of anticoagulants; J45.909 Unspecified asthma, uncomplicated; F31.9 Bipolar disorder, unspecified; F41.9 Anxiety disorder, unspecified; K21.9 Gastro-esophageal reflux disease without esophagitis; G47.33 Obstructive sleep apnea (adult) (pediatric); Z87.01 Personal history of pneumonia (recurrent); Z87.19 Personal history of other diseases of the digestive system; F17.210 Nicotine dependence, cigarettes, uncomplicated
CPT/HCPCS: 36415; 80053; 81001; 83690; 85025; 96361; 96374; 99284; J2405; J7040

== ENCOUNTER 2021-10-15 08:39 | Outpatient (CLI) | payer OTHER, SELFPAY ==
--- NOTE | ~2021-10-15 | CT_ITS ---
EXAMINATION:CT diagnostic chest wo con DATE: 10/15/2021 09:01 INDICATION: Solitary pulmonary nodule. TECHNIQUE: Computed tomography (CT) of the chest was performed without intravenous contrast. Automate d exposure control and iterative reconstruction technique were employed. The dose-length product (DLP ) was 265.80 mGy-cm. COMPARISON: Chest CT 08/07/2020 FINDINGS: There is mild scarring at the lung apices. There is mild emphysema. There is mild atelectas is bilaterally. There is a 12 mm nodule in left lung upper lobe. No pleural effusion. There is left a trial enlargement of the heart. No pericardial effusion. There are changes of cholecystectomy. There are old bilateral rib fractures. There is mild thoracic spondylosis. IMPRESSION: 1. 12 mm left upper lobe pulmonary nodule, stable from 12/24/2019, likely benign. 2. Mild emphysema. Reviewed, dictated and finalized at location B. [employer] IMPRESSION: 1. 12 mm left upper lobe pulmonary nodule, stable from 12/24/2019, likely benign . 2. Mild emphysema.
== END 2021-10-15 08:40 | disposition home or self-care (01) ==
LOC: ANHIMG 08:40
PROVIDERS: PCP Family Medicine; Visit Provider Physician Assistant
DX: R91.1 Solitary pulmonary nodule (principal); F17.210 Nicotine dependence, cigarettes, uncomplicated; J43.9 Emphysema, unspecified
CPT/HCPCS: 71250

== ENCOUNTER 2021-11-16 09:02 | Outpatient (CLI) | payer OTHER, SELFPAY ==
[2021-11-16 09:36] LABS: Hemoglobin A1C 5.5 % (<5.7)
[2021-11-16 09:37] LABS: Basophils Percent Auto 0.7 % (0.2-1.2); Eosinophils Absolute Auto 0.2 K/mm3 (0-0.3); Eosinophils Percent Auto 3.3 % (0-4.4); Hematocrit 38.2 % (37.0-47.0); Hemoglobin 12.9 g/dL (12.0-15.0); Immature Granulocyte Absolute 0.02 K/mm3 (0.00-0.031); Immature Granulocyte Percent A 0.3 % (0-0.5); Lymphocytes Absolute Auto 2.27 K/mm3 (0.9-3.2); Lymphocytes Percent Auto 37.6 % (18.3-44.2); Mean Corpuscular HGB Conc 33.8 g/dl (32-36); Mean Corpuscular Hemoglobin 32.8 pg (26-34); Mean Corpuscular Volume 97.2 fl (80-100); Mean Platelet Volume 9.3 fl (7.4-10.4); Monocytes Absolute Auto 0.7 K/mm3 (0.1-0.6); Monocytes Percent Auto 11.8 % (2.6-8.5); Neutrophils Absolute Auto 2.8 K/mm3 (1.3-6.7); Neutrophils Percent Auto 46.3 % (45.5-73.1); Platelet Count Result 203 k/mm3 (150-375); Red Blood Count 3.93 M/mm3 (4.2-5.4); Red Cell Distribution Width 12.9 % (11.5-14.5)
[2021-11-16 09:38] LABS: Alanine Aminotransferase 18 U/L (4-35); Albumin Level 4.2 g/dL (3.5-5.1); Alkaline Phosphatase 86 U/L (38-126); Anion Gap 7 mmol/L (8-16); Aspartate Amino Transferase 23 U/L (14-36); Bilirubin,Total 0.3 mg/dL (0.2-1.3); Blood Urea Nitrogen 17 mg/dL (7-17); Calcium 8.9 mg/dL (8.4-10.2); Carbon Dioxide 27 mmol/L (22-30); Chloride 102 mmol/L (98-107); Cholesterol 179 mg/dL (0-200); Estimated Glomerular Filt Rate > 60; Glucose 112 mg/dL (65-110); HDL Direct 45 mg/dL; Potassium 4.7 mmol/L (3.4-5.0); Sodium 136 mmol/L (137-145); Triglycerides 200 mg/dL (<150)
[2021-11-16 09:50] LABS: LDL Cholesterol Direct 97 mg/dL
[2021-11-16 10:19] LABS: Vitamin D 25 Hydroxy 30.3 ng/mL
== END 2021-11-16 09:03 | disposition home or self-care (01) ==
LOC: ANHLAB 09:04
PROVIDERS: PCP Family Medicine; Visit Provider Physician Assistant
DX: E11.9 Type 2 diabetes mellitus without complications (principal); E66.9 Obesity, unspecified; E78.2 Mixed hyperlipidemia; F17.209 Nicotine dependence, unspecified, with unspecified nicotine-induced disorders; F33.1 Major depressive disorder, recurrent, moderate; I10 Essential (primary) hypertension
CPT/HCPCS: 36415; 80053; 80061; 82306; 83036; 84443; 85025

== ENCOUNTER 2021-11-20 08:31 | Outpatient (CLI) | payer OTHER, SELFPAY ==
[2021-11-25 14:36] LABS: Microalbumin, Urine 6.3 mcg/min (<20)
== END 2021-11-20 08:32 | disposition home or self-care (01) ==
PROVIDERS: PCP Family Medicine; Visit Provider Physician Assistant
DX: E11.9 Type 2 diabetes mellitus without complications (principal); E66.9 Obesity, unspecified; E78.2 Mixed hyperlipidemia; F17.209 Nicotine dependence, unspecified, with unspecified nicotine-induced disorders; F33.1 Major depressive disorder, recurrent, moderate; I10 Essential (primary) hypertension
CPT/HCPCS: 82043

== ENCOUNTER 2022-01-15 09:25 | Outpatient (CLI) | payer OTHER, SELFPAY ==
--- NOTE | ~2022-01-15 | MR_ITS ---
EXAMINATION: MR brain/brain stem wo/w con DATE: 01/15/2022 10:15 INDICATION: Tremor, unspecified. TECHNIQUE: Magnetic resonance imaging (MRI) of the brain and brainstem was performed without and with 20 mL MultiHance intravenous contrast. Sequences included sagittal and axial T1-weighted FSE, axial diffusion-weighted FS EPI, axial T2*-weighted GRE, axial T2-weighted FLAIR Propeller, and axial T2-we ighted Propeller. Postcontrast sequences included axial and coronal T1-weighted FSE. Apparent diffusi on coefficient (ADC) maps were created. COMPARISON: None. FINDINGS: There is no intracranial hemorrhage, acute infarction, or abnormal intracranial mass lesion . The ventricles are normal in size. The orbits are normal. The paranasal sinuses are clear. The mast oid air cells are normal. IMPRESSION: 1. Normal brain. Reviewed, dictated and finalized at location A. IMPRESSION: 1. Normal brain.
[2022-01-15 09:49] LABS: Estimated Glomerular Filt Rate 52
== END 2022-01-15 09:26 | disposition home or self-care (01) ==
LOC: ANHIMG 09:27
PROVIDERS: PCP Family Medicine; Visit Provider Physician Assistant
DX: R25.1 Tremor, unspecified (principal)
CPT/HCPCS: 70553; A9577

== ENCOUNTER 2022-04-17 08:12 | Outpatient (CLI) | payer OTHER, SELFPAY ==
--- NOTE | ~2022-04-17 | XR_ITS ---
XR chest 2V DATE: 04/17/2022 08:30 INDICATION: Shortness of breath, cough. COPD. TECHNIQUE: 2 views COMPARISON: 10/15/2021 CT chest 12/08/2020 2 view chest FINDINGS: Stable approximately 1 cm left upper lobe nodule since 12/08/2020 No pulmonary infiltrate or consolidation, pleural effusion or pulmonary vascular congestion or pneumo thorax. Normal heart size. No hilar or mediastinal enlargement. Surgical clips, right upper quadrant, consistent with cholecystectomy. IMPRESSION: Stable approximately 1 cm left upper lobe pulmonary nodule since 12/08/2020 No active cardiac pulmonary disease Status post cholecystectomy Reviewed, dictated and finalized at location A.
== END 2022-04-17 08:13 | disposition home or self-care (01) ==
LOC: ANHIMG 08:16
PROVIDERS: PCP Family Medicine; Visit Provider Physician Assistant
DX: R06.02 Shortness of breath (principal); R50.9 Fever, unspecified; J44.9 Chronic obstructive pulmonary disease, unspecified; Z90.49 Acquired absence of other specified parts of digestive tract
CPT/HCPCS: 71046

== ENCOUNTER → 2022-04-19 02:05 | Outpatient (CLI) | payer OTHER, SELFPAY ==
[2022-04-19 17:31] LABS: SARS-CoV-2 RNA PCR Negative
== END ==
PROVIDERS: PCP Family Medicine; Visit Provider Physician Assistant
DX: R06.02 Shortness of breath (principal); Z20.822 Contact with and (suspected) exposure to COVID-19
CPT/HCPCS: C9803; U0003; U0005

== ENCOUNTER 2022-05-24 09:06 | Outpatient (CLI) | payer OTHER, SELFPAY ==
[2022-05-24 09:32] LABS: Hemoglobin A1C 5.7 % (<5.7)
[2022-05-24 09:37] LABS: Alanine Aminotransferase 18 U/L (6-35); Albumin Level 4.5 g/dL (3.5-5.1); Alkaline Phosphatase 77 U/L (38-126); Anion Gap 10 mmol/L (8-16); Aspartate Amino Transferase 22 U/L (14-36); Bilirubin,Total 0.3 mg/dL (0.2-1.3); Blood Urea Nitrogen 11 mg/dL (7-17); Calcium 9.6 mg/dL (8.4-10.2); Carbon Dioxide 23 mmol/L (22-30); Chloride 101 mmol/L (98-107); Cholesterol 184 mg/dL (0-200); Estimated Glomerular Filt Rate > 60; Glucose 122 mg/dL (65-110); HDL Direct 47 mg/dL; Potassium 4.3 mmol/L (3.4-5.0); Sodium 134 mmol/L (137-145); Triglycerides 206 mg/dL (<150)
[2022-05-24 09:48] LABS: LDL Cholesterol Direct 99 mg/dL
== END 2022-05-24 09:07 | disposition home or self-care (01) ==
LOC: ANHLAB 09:07
PROVIDERS: PCP Emergency Medicine; Visit Provider Physician Assistant
DX: E78.2 Mixed hyperlipidemia (principal); E11.9 Type 2 diabetes mellitus without complications
CPT/HCPCS: 36415; 80053; 80061; 83036

== ENCOUNTER 2022-07-24 08:58 | Outpatient (CLI) | payer OTHER, SELFPAY ==
--- NOTE | ~2022-07-24 | XR_ITS ---
EXAMINATION: XR cervical spine 4-5V DATE: 07/24/2022 10:13 INDICATION: Cervical radiculopathy. TECHNIQUE: 4 views of cervical spine were obtained. COMPARISON: Cervical spine radiographs 11/27/2020 FINDINGS: There is 6 degrees dextrocurvature of cervical spine. There is kyphosis of cervical spine. Vertebral body heights are normal. There is mildly decreased disc height at C5-C6. At C7-T1, there is moderate to severe facet joint osteoarthritis. No central canal stenosis or prevertebral soft tissue swelling. IMPRESSION: 1. Mild cervical spondylosis. Reviewed, dictated and finalized at location B.
--- NOTE | 2022-07-24 11:15 | NEURO_ITS ---
Impression: # Known diabetic complains of pain and numbness. # Normal nerve conduction study. # Normal needle/EMG exam except neurogenic changes in left deltoid and bicep raising the possibility of higher involvement. # Clinical correlation recommended. Nerve Conduction Studies Anti Sensory Summary Table Stim Site NR Peak (ms) P-T Amp (?V) Site1 Site2 Delta-P (ms) Dist (cm) Glenn (m/s) Left Median Anti Sensory (2-3nd Digit) Wrist 3.2 39.3 Wrist 2-3nd Digit 3.2 14.0 44 Wrist 3.0 94.6 Wrist 2-3nd Digit 3.2 14.0 44 Right Median Anti Sensory (2-3nd Digit) Wrist 3.2 47.5 Wrist 2-3nd Digit 3.2 14.0 44 Wrist 3.3 41.1 Wrist 2-3nd Digit 3.2 14.0 44 Left Radial Anti Sensory (Base 1st Digit) Wrist 2.2 23.8 Wrist Base 1st Digit 2.2 0.0 Right Radial Anti Sensory (Base 1st Digit) Wrist 2.3 20.1 Wrist Base 1st Digit 2.3 0.0 Left Ulnar Anti Sensory (5th Digit) Wrist 2.5 35.2 Wrist 5th Digit 2.5 14.0 56 Right Ulnar Anti Sensory (5th Digit) Wrist 2.4 41.1 Wrist 5th Digit 2.4 14.0 58 Motor Summary Table Stim Site NR Onset (ms) O-P Amp (mV) Site1 Site2 Delta-0 (ms) Dist (cm) Glenn (m/s) Left Median Motor (Abd Poll Brev) Wrist 3.6 3.6 Elbow Wrist 5.2 26.0 50 Elbow 8.8 4.6 Right Median Motor (Abd Poll Brev) Wrist 3.4 5.4 Elbow Wrist 4.9 27.0 55 Elbow 8.3 4.2 Left Ulnar Motor (Abd Dig Minimi) Wrist 2.5 8.0 A Elbow Wrist 4.8 26.0 54 A Elbow 7.3 5.0 Right Ulnar Motor (Abd Dig Minimi) Wrist 2.5 5.9 A Elbow Wrist 5.2 28.0 54 A Elbow 7.7 3.7 F Wave Studies NR F-Lat (ms) L-R F-Lat (ms) Left Median (Mrkrs) (Abd Poll Brev) 28.63 1.23 Right Median (Mrkrs) (Abd Poll Brev) 29.86 1.23 Left Ulnar (Mrkrs) (Abd Dig Min) 28.17 0.30 Right Ulnar (Mrkrs) (Abd Dig Min) 28.47 0.30 EMG Side Muscle Nerve Root Ins Act Fibs Amp Dur Recrt Comment Right 1stDorInt Ulnar C8-T1 Nml Nml Nml Nml Nml Right Ext Indicis Radial (Post Int) C7-8 Nml Nml Nml Nml Nml Right Ext Digitorum Radial (Post Int) C7-8 Nml Nml Nml Nml Nml Right BrachioRad Radial C5-6 Nml Nml Nml Nml Nml Right PronatorTeres Median C6-7 Nml Nml Nml Nml Nml Right Abd Poll Brev Median C8-T1 Nml Nml Nml Nml Nml Left 1stDorInt Ulnar C8-T1 Nml Nml Nml Nml Nml Left Ext Indicis Radial (Post Int) C7-8 Nml Nml Nml Nml Nml Left Ext Digitorum Radial (Post Int) C7-8 Nml Nml Nml Nml Nml Left BrachioRad Radial C5-6 Nml Nml Nml Nml Nml Left PronatorTeres Median C6-7 Nml Nml Nml Nml Nml Left Abd Poll Brev Median C8-T1 Nml Nml Nml Nml Nml Right Biceps Musculocut C5-6 Nml Nml Nml Nml Nml Right Triceps Radial C6-7-8 Nml Nml Nml Nml Nml Right Deltoid Axillary C5-6 Nml Nml Nml Nml Nml Left Biceps Musculocut C5-6 Nml Nml Nml Nml Nml Left Triceps Radial C6-7-8 Nml Nml Nml Nml Nml Left Deltoid Axillary C5-6 Nml Nml Nml Nml Nml MTDD
== END 2022-07-24 08:59 | disposition home or self-care (01) ==
PROVIDERS: PCP Emergency Medicine; Visit Provider Emergency Medicine
DX: M54.12 Radiculopathy, cervical region (principal); M43.02 Spondylolysis, cervical region
CPT/HCPCS: 72050; 95886; 95911

== ENCOUNTER 2022-08-05 07:36 | Outpatient (CLI) | payer OTHER, SELFPAY ==
--- NOTE | 2022-08-26 12:02 | WPDSLEEPSTUD ---
Sleep Study Date of Study: 08/05/22 Ordering Provider: RAMBO Erwin Interpreting Physician: Cinthya Olivares MD Sleep Study Type: CPAP Titration Height: 1.6 m Weight: 103.873 kg Body Mass Index: 40.5 Neck Circumference (inches): 17 [place]: 18 Reason for Sleep Study Known obstructive sleep apnea, on CPAP 12 cm, poor quality sleep, she presents for CPAP titration * 03/24/2019, split night study, severe obstructive sleep apnea, AHI 54.1, minimum desaturation 86%, optimal pressure CPAP 11 cm. Sleep History Jennifer Mott is a 52-year-old woman with obstructive sleep apnea now on CPAP 12cm H2O. She is waking at night, having problems staying asleep. She wakes every 2-3 hours for a half hour. She was previously on Seroquel, now working with her PCP to come off of this, maybe start new medications. She previously used trazodone to sleep but this was discontinued due to potential interaction with her other mood stabilizing medications. She does not typically take naps. She feels tired through the day despite having optimal compliance. She does benefit from using CPAP but is more tired than after she initially started using PAP. [facility] Past Medical History Medical History Anxiety and depression Asthma Bipolar disorder Blood in stool Carpal tunnel syndrome Chronic obstructive pulmonary disease Colitis Colon cancer screening Diarrhea Esophageal reflux Fracture, ribs Chronic rib fractures on imaging in dated 03/02/2020. Hemorrhoid History of pulmonary embolus (PE) Lung nodule 11 millimeter left upper lobe nodule with mild FDG uptake on PET scan in December 2019. Bronchoscopy with bronchioalveolar lavage February 18, 2020 demonstrated no malignant cells. Obstructive sleep apnea Pneumonia Rectal polyp Tobacco abuse Type 2 diabetes mellitus without complication, without long-term current use of insulin Hemoglobin A1c was 6.5% in January 2020. Surgical History Surgical History History of appendectomy History of cholecystectomy (~2010) History of tubal ligation (~1992) Family History Family History Mother Hypertension Diabetes mellitus Father Heart disease Cerebrovascular accident Social History Social History Social History: The patient lives in [place]. She has 2 grown children. She has smoked up to 2 packs of cigarettes per day for 35 years, now smokes about a pack a day. She denies alcohol abuse. Occasional marijuana use. Her sister, Ilene Gil, is her surrogate decision maker and she wishes to be a full code. Smoking packs per day: 1 Smoking cigarettes per day: 20.0 Years smoked: 44 Smoking pack-years: 44.00 Smoking status: Current every day smoker Tobacco type: cigarettes Second hand tobacco smoke exposure: Yes Alcohol intake: current Drinks per week: 3 Substance use: current Substance use type: marijuana Other substance usage details: smokes marijuana daily Last use: 03/01/2021 Lack of Transportation: No Lack of Food: Never True Concerned About Future Housing: No Difficulty Paying Gas/Electric Bills: No Difficulty Paying for Meds: No Currently Unemployed: No Education: Decline to Answer Difficulty w/ Childcare or Family Care: No Gender identity (if verbalized by the patient): Female Spiritual care concerns: No Medications Home Medications Medication Instructions Recorded Confirmed Type albuterol sulfate 2.5 mg/3 mL 2.5 mg inhalation TID PRN 12/08/20 05/27/22 History (0.083 %) solution for nebulization Shortness Of Breath Or Wheezing buspirone 10 mg tablet 10 mg PO TID 03/01/21 05/27/22 History atorvastatin 10 mg tablet 10 mg PO HS #90 tabs 11/15/21 05/27/22 Rx blood-glucose meter #1 ea 11/15/21 05/27/22 Rx cetir
[2022-08-26 12:37] VITALS: BMI 40.5
== END 2022-08-06 05:16 | disposition home or self-care (01) ==
PROVIDERS: PCP Emergency Medicine; Visit Provider Physician Assistant
DX: G47.34 Idiopathic sleep related nonobstructive alveolar hypoventilation (principal); G47.33 Obstructive sleep apnea (adult) (pediatric); Z68.41 Body mass index [BMI] 40.0-44.9, adult
CPT/HCPCS: 95811

== ENCOUNTER 2022-09-10 08:01 | Outpatient (CLI) | payer OTHER, SELFPAY ==
--- NOTE | ~2022-09-10 | MR_ITS ---
EXAMINATION: MR cervical spine wo con DATE: 09/10/2022 08:53 INDICATION: Tremors and neck pain TECHNIQUE: Magnetic resonance imaging (MRI) of the cervical spine was performed without intravenous c ontrast. Sequences included sagittal T2-weighted FSE, sagittal T2-weighted FS FSE, sagittal T1-weight ed FSE, axial MERGE and axial T2-weighted FSE. COMPARISON: Cervical spine radiographs dated 07/24/2022 FINDINGS: Minimal cervical dextrocurvature. Slight kyphosis at C4-C5 where there is also 1-2 mm anterolisthesis of C4 on C5. Vertebral body heights are normal. Bone marrow signal intensity is normal. Mild disc height loss at C5-C6. Annular fissures with disc protrusion at C4-C5 and disc extrusion at C5-C6 whic h will be further detailed below. Cord signal intensity is normal. Cervical soft tissues are unremark able. The following disc levels are specifically discussed: C2-C3: The disc does not extend beyond the endplate margin. There is no uncovertebral joint osteoarth ritis. There is mild bilateral facet joint osteoarthritis. There is no neural foraminal stenosis. The re is no central canal stenosis. C3-C4: The disc does not extend beyond the endplate margin. There is no uncovertebral joint osteoarth ritis. There is mild right and mild to moderate left facet joint osteoarthritis. There is no neural f oraminal stenosis. There is no central canal stenosis. C4-C5: Annular fissure and small central disc protrusion which contacts but does not deform the ventr al surface of the cord. There is mild right uncovertebral joint osteoarthritis. There is left and mil d to moderate right facet joint osteoarthritis. There is no neural foraminal stenosis. There is mild central canal stenosis. C5-C6: Annular fissure and small disc extrusion which begins centrally and extends inferiorly and tow ards the left with disc material extending up to 6 mm caudal to the level of the superior endplate of C6. The disc extrusion slightly indents the left ventral surface of the cord. There is mild bilatera l uncovertebral joint osteoarthritis. There is mild bilateral facet joint osteoarthritis. There is mi ld bilateral neural foraminal stenosis. There is mild central canal stenosis. C6-C7: Disc is mildly bulging. There is no uncovertebral joint osteoarthritis. There is mild bilatera l facet joint osteoarthritis. There is mild left neural foraminal stenosis. There is minimal central canal stenosis. C7-T1: The disc does not extend beyond the endplate margin. There is no uncovertebral joint osteoarth ritis. There is moderate right and moderate to severe left facet joint osteoarthritis. There is mild right and moderate left neural foraminal stenosis. There is no central canal stenosis. IMPRESSION: 1. Mild cervical spondylosis. Reviewed, dictated and finalized at location A. DENT DIRECTOR
== END 2022-09-10 08:02 | disposition home or self-care (01) ==
LOC: ANHIMG 08:02
PROVIDERS: PCP Emergency Medicine; Visit Provider Psychiatry & Neurology Neurology
DX: R25.1 Tremor, unspecified (principal); M47.812 Spondylosis without myelopathy or radiculopathy, cervical region
CPT/HCPCS: 72141

== ENCOUNTER 2022-10-22 08:09 | Outpatient (CLI) | payer OTHER, SELFPAY ==
--- NOTE | ~2022-10-22 | CT_ITS ---
EXAMINATION:CT lung screening DATE: 10/22/2022 08:25 INDICATION: Tobacco use. Lung cancer screening. Current smoker with 70 pack year history. TECHNIQUE: Computed tomography (CT) of the chest was performed without intravenous contrast. Automate d exposure control and iterative reconstruction technique were employed. The dose-length product (DLP ) was 210.85 mGy-cm. COMPARISON: Chest CT 10/15/2021, 12/24/2019 FINDINGS: There is stable mild scarring at the lung apices. There is mild emphysema. There is a 12 mm nodule in left upper lobe, stable from 12/24/2019. No pleural effusion. The heart size is normal. No pericardial effusion. There are changes of cholecystectomy. There are old bilateral rib fractures. Th ere is mild thoracic spondylosis. IMPRESSION: 1. Lung-RADS category 2: Benign appearance or behavior. Continue annual screening with noncontrast lo w-dose chest CT in 12 months. Reviewed, dictated and finalized at location A. NE HOSTLER IMPRESSION: 1. Lung-RADS category 2: Benign appearance or behavior. Continue annual screeni ng with noncontrast low-dose chest CT in 12 months.
== END 2022-10-22 08:10 | disposition home or self-care (01) ==
PROVIDERS: PCP Emergency Medicine; Visit Provider Physician Assistant
DX: Z12.2 Encounter for screening for malignant neoplasm of respiratory organs (principal); F17.210 Nicotine dependence, cigarettes, uncomplicated
CPT/HCPCS: 71271

== ENCOUNTER 2022-10-29 07:31 | Outpatient (CLI) | payer OTHER, SELFPAY ==
--- NOTE | ~2022-10-29 | MM_ITS ---
EXAMINATION: MM screening miguelangel BI w milena HISTORY: Screening mammogram TECHNIQUE: Craniocaudal and mediolateral oblique 3-D tomosynthesis images were obtained and synthetic 2-D images were generated. CAD analysis was submitted and interpreted. COMPARISON: November 19, 2010 bilateral diagnostic mammogram and bilateral breast ultrasound examinat ion October 19, 2010 bilateral screening mammogram BREAST PARENCHYMAL COMPOSITION: There are scattered areas of fibroglandular density. FINDINGS: There is no evidence of suspicious mass, calcification, or architectural distortion to sugg est malignancy in either breast. There has been no suspicious interval change. IMPRESSION: 1. No mammographic evidence of malignancy. 2. Recommend routine screening mammography in one year. BI-RADS Category 1: Negative Reviewed, dictated and finalized at location A. CTION BRAZER
--- NOTE | ~2022-10-29 | DEXA_ITS ---
Bone Density Report Name: TAYLER MILES Age: 52 Sex: Female Ethnicity: White Date of : 1970 Indication: postmenopausal; screening for osteoporosis; asthma or emphysema; Referring Provider: NIKKI STEINBERG Study: Bone densitometry was performed. Exam Date: October 29, 2022 Accession number: [id number] Bone Density: Region BMD T-score Z-score Classification AP Spine(L1-L4) 0.951 -0.9 0.1 Normal Femoral Neck (Left) 0.723 -1.1 -0.2 Osteopenia Total Hip (Left) 0.929 -0.1 0.5 Normal Femoral Neck (Right) 0.695 -1.4 -0.4 Osteopenia Total Hip (Right) 0.920 -0.2 0.4 Normal Total Hip Mean 0.925 -0.2 0.5 Normal World Health Organization criteria for BMD impression classify patients as: Normal (T-score at or above -1.0), Osteopenia (T-score between -1.0 and -2.5), or Osteoporosis (T-score at or below -2.5). 10-year Fracture Risk(1): Major Osteoporotic Fracture 5.3% Hip Fracture 0.6% Reported Risk Factors: [place] (), Neck BMD=0.695, BMI=39.7, smoking (1) FRAX(R) Version 3.08. Fracture probability calculated for an untreated patient. Fracture probability may be lower if the patient has received treatment. Clinical Information Provided by Patient: Smokes Has used the following medications: Vitamin D Has the following medical conditions: Asthma or Emphysema Patient maximum height was 63 Menopause Age: 42 No regular weight bearing exercise Does not regularly consume dairy products Drinks caffeinated beverages Onset of menses at age 9 Number of children 2 Impression: The patient has low bone mass, based on the Right Femoral Neck T-score. The patient has an estimated ten-year risk of hip fracture of 0.6% and an estimated ten-year risk of major fracture of 5.3%, based on the WHO FRAX algorithm. The patient has risk factors, including: smoking. Discussion: BONE DENSITY IS LOW AT ONE OR MORE SKELETAL SITES. This patient's lowest T-score is low at one or more skeletal sites. It meets the World Health Organization's (WHO) criteria for ?low bone mass? (T-score between -1.0 and -2.5). The patient's 10-year risk of fracture as calculated by FRAX is less than the threshold where pharmacological therapy is recommended by the National Osteoporosis Foundation (NOF). However, all treatment decisions require clinical judgment and consideration of individual patient factors, including patient preferences, comorbidities, previous drug use, risk factors not captured in the FRAX model (e.g., frailty, falls, vitamin D deficiency, increased bone turnover, interval significant decline in bone density) and possible under or overestimation of fracture risk by FRAX. The patient should follow a healthful lifestyle (good nutrition with adequate calcium and vitamin D, and appropriate weight-bear
== END 2022-10-29 07:32 | disposition home or self-care (01) ==
LOC: ANHIMG 07:41
PROVIDERS: PCP Emergency Medicine; Visit Provider Physician Assistant
DX: Z12.31 Encounter for screening mammogram for malignant neoplasm of breast (principal); Z78.0 Asymptomatic menopausal state; M85.852 Other specified disorders of bone density and structure, left thigh; M85.851 Other specified disorders of bone density and structure, right thigh
CPT/HCPCS: 77063; 77067; 77080

== ENCOUNTER 2023-07-01 09:12 | Outpatient (CLI) | payer OTHER, SELFPAY ==
[2023-07-01 12:10] LABS: Basophils Percent Auto 0.4 % (0.2-1.2); Eosinophils Absolute Auto 0.2 K/mm3 (0-0.3); Eosinophils Percent Auto 2.5 % (0-4.4); Hematocrit 37.8 % (37.0-47.0); Hemoglobin 12.9 g/dL (12.0-15.0); Immature Granulocyte Absolute 0.02 K/mm3 (0.00-0.031); Immature Granulocyte Percent A 0.3 % (0-0.5); Lymphocytes Absolute Auto 2.56 K/mm3 (0.9-3.2); Lymphocytes Percent Auto 37.7 % (18.3-44.2); Mean Corpuscular HGB Conc 34.1 g/dl (32-36); Mean Corpuscular Hemoglobin 31.9 pg (26-34); Mean Corpuscular Volume 93.3 fl (80-100); Mean Platelet Volume 9.2 fl (7.4-10.4); Monocytes Absolute Auto 0.5 K/mm3 (0.1-0.6); Monocytes Percent Auto 7.2 % (2.6-8.5); Neutrophils Absolute Auto 3.5 K/mm3 (1.3-6.7); Neutrophils Percent Auto 51.9 % (45.5-73.1); Platelet Count Result 261 k/mm3 (150-375); Red Blood Count 4.05 M/mm3 (4.2-5.4); Red Cell Distribution Width 12.9 % (11.5-14.5); White Blood Count 6.8 K/mm3 (4.5-10.0)
[2023-07-01 12:18] LABS: Alanine Aminotransferase 17 U/L (6-35); Albumin Level 4.1 g/dL (3.5-5.1); Alkaline Phosphatase 80 U/L (38-126); Anion Gap 5 mmol/L (8-16); Aspartate Amino Transferase 41 U/L (14-36); Bilirubin,Total 0.4 mg/dL (0.2-1.3); Blood Urea Nitrogen 17 mg/dL (7-17); Carbon Dioxide 31 mmol/L (22-30); Chloride 101 mmol/L (98-107); Cholesterol 200 mg/dL (0-200); Estimated Glomerular Filt Rate > 60; Glucose 101 mg/dL (65-110); HDL Direct 52 mg/dL; Potassium 4.7 mmol/L (3.4-5.0); Sodium 137 mmol/L (137-145); Triglycerides 138 mg/dL (<150)
[2023-07-01 12:29] LABS: Hemoglobin A1C 5.4 % (<5.7)
[2023-07-01 12:31] LABS: LDL Cholesterol Direct 111 mg/dL
[2023-07-01 13:38] LABS: Folic Acid 5.1 ng/mL (2.76->20)
[2023-07-01 14:20] LABS: Lipase 129 U/L (23-300)
[2023-07-01 20:11] LABS: Microalbumin Urine Random < 6.0 mg/L (0-16.7)
[2023-07-01 20:12] LABS: MALB Creatinine Ratio < 14.6 mg/g (0-30)
== END 2023-07-01 09:13 | disposition home or self-care (01) ==
LOC: ANHGOSHLAB 09:14
PROVIDERS: PCP Emergency Medicine; Visit Provider Emergency Medicine
DX: G62.9 Polyneuropathy, unspecified (principal); G25.2 Other specified forms of tremor; E11.9 Type 2 diabetes mellitus without complications; Z79.899 Other long term (current) drug therapy
CPT/HCPCS: 36415; 80053; 80061; 82043; 82607; 82746; 83036; 83690; 84443; 85025

== ENCOUNTER 2023-08-07 12:03 | Outpatient (CLI) | payer OTHER, SELFPAY ==
--- NOTE | ~2023-08-07 | PE_ITS ---
EXAMINATION: PET skull to mid thigh DATE: 08/07/2023 14:24 INDICATION: Solitary pulmonary nodule. TECHNIQUE: Blood glucose level was 93 mg/dL. 10.428 mCi of 18-fluorodeoxyglucose (18-FDG) was adminis tered i.v. Low dose computed tomography (CT) images were acquired from the base of the brain to the p roximal thighs for attenuation correction and anatomic localization. Automated exposure control was e mployed. Dose-length product (DLP) was 1146 mGy-cm. Positron emission tomography (PET) images were ac quired in the same distribution. COMPARISON: Chest CT 07/11/2023, 10/22/2022, 12/24/19 FINDINGS: Head/neck: There are no pathologically enlarged lymph nodes. Chest: There is mild atelectasis bilaterally. There is a 3 mm nodule at minor fissure, likely benign. There is a 10 mm nodule in left upper lobe without increased activity, stable from 12/24/19. No pleur al effusion. The heart size is normal. No pericardial effusion. There is right paratracheal and subca rinal lymphadenopathy with increased activity. For example, a 2.0 x 1.4 cm right paratracheal node de monstrates maximum SUV of 8.3. The heart size is normal. No pericardial effusion. There are old bilat eral rib fractures. Abdomen/pelvis/proximal thighs: The liver and spleen are normal. There are changes of cholecystectomy . The pancreas, adrenal glands, and kidneys are normal. There are no dilated loops of bowel. There ar e changes of appendectomy. There is an umbilical hernia containing fat. There are no pathologically e nlarged lymph nodes. There is no free intraperitoneal fluid. IMPRESSION: 1. 10 mm nodule in left lung upper lobe without increased activity, stable from 12/24/2019, likely charly ign. 2. Mild mediastinal lymphadenopathy with increased activity, new from 10/22/2022. These findings may b e reactive, but malignancy such as lymphoma cannot be excluded. Reviewed, dictated and finalized at location E. IMPRESSION: 1. 10 mm nodule in left lung upper lobe without increased activity, stable from 12/24/2019, likely benign. 2. Mild mediastinal lymphadenopathy with increased activity, new from 10/22/2022 . These findings may be reactive, but malignancy such as lymphoma cannot be exc luded.
[2023-08-07 12:23] LABS: Glucose Point of Care 93 mg/dl (65-105)
== END 2023-08-07 12:04 | disposition home or self-care (01) ==
PROVIDERS: PCP Emergency Medicine; Visit Provider Physician Assistant
DX: R91.1 Solitary pulmonary nodule (principal); R59.0 Localized enlarged lymph nodes
CPT/HCPCS: 78815; A9552

== ENCOUNTER 2023-08-12 08:06 | Outpatient (CLI) | payer OTHER, SELFPAY ==
--- NOTE | ~2023-08-12 | US_ITS ---
Abdominal Sonogram: Real-time sonographic imaging of the abdomen was performed. Clinical History: Abdominal pain Findings: The liver appears normal with no evidence of mass lesion or bile duct dilatation. Main por efren vein demonstrates normal direction of flow. The spleen is normal in size without evidence of foca l lesion. The gallbladder is absent, compatible prior cholecystectomy. The common bile duct measures 5 mm. The visualized pancreas, aorta, and IVC are unremarkable. The right kidney measures 9.6 cm i n length and the left kidney measures 10.3 cm. There is no hydronephrosis or renal calculus. Impression: Status post cholecystectomy, otherwise unremarkable exam. Reviewed, dictated and finalized at location . UT DESIGNER Impression: Status post cholecystectomy, otherwise unremarkable exam.
--- NOTE | ~2023-08-12 | US_ITS ---
EXAMINATION: US arterial ankle brachial ind DATE: 08/12/2023 09:24 INDICATION: Left lower limb pain TECHNIQUE: Segmental pressures and plethysmographic and Doppler waveforms of the brachial and lower e xtremity arteries were obtained. COMPARISON: None. FINDINGS: Right and left brachial artery pressures of 154 mm Hg and 138 mm Hg, respectively, are concordant (no rmal difference <= 30 mmHg). The right ankle-brachial index (GLORY) is 1.10 (normal >= 0.9-1.0). The right great toe-brachial index (TBI) is 0.48 (normal >= 0.65). Arterial Doppler waveforms biphasic with brisk systolic upstrokes at both right posterior tibial and dorsalis pedis arteries. The left GLORY is 1.05. The left TBI is 0.86. Arterial Doppler waveforms are biphasic with brisk systol ic upstrokes at both left posterior tibial and dorsalis pedis arteries. IMPRESSION: 1. Mild arterial occlusive disease to the right lower limb with normal GLORY but mildly decreased right TBI. 2. No significant arterial occlusive disease to the left lower limb with normal left GLORY and TBI. Reviewed, dictated and finalized at location A. RIALS INSPECTOR
== END 2023-08-12 08:07 | disposition home or self-care (01) ==
PROVIDERS: PCP Emergency Medicine; Visit Provider Emergency Medicine
DX: R10.9 Unspecified abdominal pain (principal); I77.9 Disorder of arteries and arterioles, unspecified; Z90.49 Acquired absence of other specified parts of digestive tract
CPT/HCPCS: 76700; 93922

== ENCOUNTER 2023-09-26 02:55 | Day surgery (SDC) | payer OTHER, SELFPAY ==
[2023-09-17 12:45] VITALS: BMI 38.1
--- NOTE | 2023-09-17 13:07 | PC.NURSE ---
Spoke with __PATIENT regarding medication __ELIQUIS . Pt. verbalizes understanding that the last dose of _ELIQUIS is to be taken on ___09/23/2023 and the Endoscopist will instruct them when to restart after the procedure.
--- NOTE | 2023-09-24 09:28 | SUR.PREOP ---
Patient called regarding upcoming procedure. Reviewed preop instructions, appointment times, and procedure prep.
--- NOTE | 2023-09-25 10:06 | WPDANESEPPF ---
Anes - Initial Pre Proc Eval Procedure: Operation Date: 09/26/23 14:30 Proposed Procedures p Esophagogastroduodenoscopy - Sina Guan MD Date/Time: 09/25/23 10:06 Surgeon: Sina Guan MD Pre Op Diagnosis: Nausea with vomiting,unspecified Patient Data Age: 53 Gender: F Height: 1.6 m Weight: 97.75 kg Allergies Allergy/AdvReac Type Severity Reaction Status Date / Time No Known Allergies Allergy Verified 09/26/23 13:01 Home Medications Medication Instructions Recorded Confirmed Type buspirone 10 mg tablet 10 mg PO TID 03/01/21 09/26/23 History blood-glucose meter #1 ea 11/15/21 09/26/23 Rx blood sugar diagnostic #100 ea 11/19/21 09/26/23 Rx lancets #200 ea 11/19/21 09/26/23 Rx albuterol sulfate 2.5 mg/3 mL 2.5 mg (3 mL) inhalation TID PRN 11/01/22 09/26/23 Rx (0.083 %) solution for nebulization Shortness Of Breath Or Wheezing #180 mL trazodone 50 mg tablet 50 mg PO QHS 12/04/22 09/26/23 History albuterol sulfate 90 mcg/actuation 1 - 2 puff inhalation Q4-6H PRN 04/25/23 09/26/23 Rx aerosol inhaler shortness of breath or wheezing #1 ea cariprazine 3 mg capsule (Vraylar) 3 mg PO DAILY 04/25/23 09/26/23 History divalproex 250 mg tablet,delayed 250 mg PO .QD 04/25/23 09/26/23 History release divalproex 500 mg tablet,delayed 500 mg PO BID 04/25/23 09/26/23 History release sertraline 100 mg tablet 100 mg PO DAILY 04/25/23 09/26/23 History apixaban 5 mg tablet (Eliquis) See Rx Instructions .Route 04/29/23 09/26/23 Rx .COMPLEX #180 tabs budesonide-formoterol HFA 160 See Rx Instructions .Route 05/22/23 09/26/23 Rx mcg-4.5 mcg/actuation aerosol .COMPLEX #10.2 grams inhaler (Symbicort) cyanocobalamin (vitamin B-12) 1,000 mcg IM MONTHLY #10 mL 07/01/23 09/26/23 Rx 1,000 mcg/mL injection solution syringe with needle 1 mL 20 gauge #100 ea 07/09/23 09/26/23 Rx x 1 (BD Luer-Gray Syringe) ergocalciferol (vitamin D2) 1,250 See Rx Instructions .Route 07/21/23 09/26/23 Rx mcg (50,000 unit) capsule (Vitamin .COMPLEX #20 caps D2) umeclidinium 62.5 mcg/actuation See Rx Instructions .Route 07/22/23 09/26/23 Rx blister powder for inhalation .COMPLEX #30 ea (Incruse Ellipta) cetirizine 10 mg tablet 10 mg PO DAILY #90 tabs 07/23/23 09/26/23 Rx atorvastatin 10 mg tablet 10 mg PO HS #90 tabs 09/15/23 09/26/23 Rx lidocaine 5 % topical patch 1 patch topical DAILY PRN Pain 09/17/23 09/26/23 History lisinopril 20 mg tablet 20 mg PO DAILY 09/17/23 09/26/23 History omeprazole 20 mg capsule,delayed 20 mg PO DAILY 09/17/23 09/26/23 History release Patient hx anesthesia problems: none Family hx anesthesia problems: none Results Review: All pre-operative results and documents have been reviewed as part of the pre-operative evaluation. [facility] Past Medical History Medical History (Updated 09/25/23 @ 10:06 by Ramon Garcia, ) Anxiety and depression Asthma Bipolar disorder Blood in stool Carpal tunnel syndrome Chronic obstructive pulmonary disease Colitis Colon cancer screening Diabetes type 2, controlled Diarrhea Esophageal reflux Fracture, ribs Chronic rib fractures on imaging in dated 03/02/2020. Hemorrhoid History of pulmonary embolus (PE) Hyperlipidemia Hypertension Lung nodule 11 millimeter left upper lobe nodule with mild FDG uptake on PET scan in December 2019. Bronchoscopy with bronchioalveolar lavage February 18, 2020 demonstrated no malignant cells. Obstructive sleep apnea Pneumonia Pulmonary embolism Rectal polyp Tobacco abuse Surgical History Surgical History History of appendectomy History of cholecystectomy (~2010) History of tubal ligation (~1992) Family History Family History Mother Hypertension Diabetes mellitus Father Heart disease Cerebrovascular accident Social History Social History (Reviewed
[2023-09-26 13:04] VITALS: BP 141/96; PULSE 89; RESP 18; TEMP 36.3; O2SAT 99; BMI 37.8
[2023-09-26] MEDS: LACTATED RINGERS 1,000 ML 150 ML IV CONT (13:07)
[2023-09-26 13:27] LABS: Glucose Point of Care 105 mg/dl (65-105)
--- NOTE | 2023-09-26 13:38 | WPDHPUPDATE1 ---
History and Physical Update Update Date/Time: 09/26/23 13:38 History and Physical has been reviewed, including an updated exam of the patient. There are NO changes in the patient's condition. Risks, benefits, and alternatives have been discussed and questions answered. Patient agrees to proceed with procedure.
[2023-09-26 13:53] VITALS: BP 132/83; PULSE 77; RESP 20; O2SAT 95
[2023-09-26 14:03] VITALS: BP 129/85; PULSE 85; RESP 20; O2SAT 100
[2023-09-26 14:09] VITALS: BP 160/107; PULSE 96; RESP 20; O2SAT 100
--- NOTE | 2023-09-26 14:11 | SUR.PHASEII ---
Per pt, Dr. Arriaga told pt she is ok to restart Eliquis today. Pt stated she is needing to hold Eliquis for another upcoming procedure on Friday.
--- NOTE | 2023-09-26 14:27 | SUR.PHASEII ---
Clarification on blood thinner: Per Dr. Arriaga, pt ok to restart blood thinner today. Pt stated she is to take it the next two days and then stop for upcoming biopsy.
== END 2023-09-26 14:29 | disposition home or self-care (01) ==
PROVIDERS: PCP Emergency Medicine; Visit Provider Internal Medicine Gastroenterology
PROC: 0DJ08ZZ Inspection of Upper Intestinal Tract, Via Natural or Artificial Opening Endoscopic (ICD-10-PCS; CPT 43235; principal; 2023-09-26 14:30)
DX: K29.50 Unspecified chronic gastritis without bleeding (principal); I10 Essential (primary) hypertension; E78.5 Hyperlipidemia, unspecified; G47.33 Obstructive sleep apnea (adult) (pediatric); J44.9 Chronic obstructive pulmonary disease, unspecified; E11.9 Type 2 diabetes mellitus without complications; F41.8 Other specified anxiety disorders; F31.9 Bipolar disorder, unspecified; K21.9 Gastro-esophageal reflux disease without esophagitis; R91.1 Solitary pulmonary nodule; Z86.711 Personal history of pulmonary embolism; Z79.01 Long term (current) use of anticoagulants; Z79.51 Long term (current) use of inhaled steroids; F17.210 Nicotine dependence, cigarettes, uncomplicated; F12.90 Cannabis use, unspecified, uncomplicated; E66.9 Obesity, unspecified; Z68.37 Body mass index [BMI] 37.0-37.9, adult
CPT/HCPCS: 43239; 82948; 88305; J7120